=== PATIENT | male | born 1945 | race Caucasian/White ===

== ENCOUNTER → 2017-01-31 | Outpatient (CLI) | payer MEDICARE, OTHER ==
[2017-01-31 09:29] LABS: MEAN CORPUSCULAR HEMOGLOBIN 30.5 pg (27.0-33.0); MEAN CORPUSCULAR HGB CONC 33.7 g/dl (32.0-36.5); MEAN CORPUSCULAR VOLUME 90.6 fl (80.0-96.0); RED CELL DISTRIBUTION WIDTH 12.1 % (11.5-14.5); WHITE BLOOD COUNT 6.6 K/mm3 (4.0-10.0)
[2017-01-31 09:51] LABS: ALBUMIN 3.8 GM/DL (3.2-5.2); ALBUMIN/GLOBULIN RATIO 1.52 (1.00-1.93); ALKALINE PHOSPHATASE 87 U/L (45-117); ALT/SGPT 20 U/L (12-78); ANION GAP 8 MEQ/L (8-16); AST/SGOT 20 U/L (15-37); BILIRUBIN,TOTAL 0.4 MG/DL (0.2-1.0); BLOOD UREA NITROGEN 20 MG/DL (7-18); CALCIUM LEVEL 8.1 MG/DL (8.8-10.2); CARBON DIOXIDE LEVEL 29 MEQ/L (21-32); CHLORIDE LEVEL 104 MEQ/L (98-107); CHOLESTEROL LEVEL 113 MG/DL (<200); CREATININE FOR GFR 0.95 MG/DL (0.70-1.30); GLOMERULAR FILTRATION RATE > 60.0 (>42); GLUCOSE, FASTING 131 MG/DL (83-110); POTASSIUM SERUM 4.1 MEQ/L (3.5-5.1); SODIUM LEVEL 141 MEQ/L (136-145); TOTAL PROTEIN 6.3 GM/DL (6.4-8.2); TRIGLYCERIDES LEVEL 69 MG/DL (<150)
== END ==
LOC: M WUC 08:09
PROVIDERS: ATTEND Family Medicine
DX: I10 Essential (primary) hypertension (principal); E11.9 Type 2 diabetes mellitus without complications; N40.0 Benign prostatic hyperplasia without lower urinary tract symptoms

== ENCOUNTER → 2017-09-19 | Outpatient (CLI) | payer MEDICARE, OTHER ==
[2017-09-19 13:52] LABS: MEAN CORPUSCULAR HGB CONC 32.9 g/dl (32.0-36.5); MEAN CORPUSCULAR VOLUME 90.9 fl (80.0-96.0); PLATELET COUNT, AUTOMATED 225 10^3/uL (150-450); RED CELL DISTRIBUTION WIDTH 12.1 % (11.5-14.5); WHITE BLOOD COUNT 5.5 10^3/uL (4.0-10.0)
[2017-09-19 14:16] LABS: ALBUMIN 3.8 GM/DL (3.2-5.2); ALBUMIN/GLOBULIN RATIO 1.31 (1.00-1.93); ALKALINE PHOSPHATASE 91 U/L (45-117); ALT/SGPT 20 U/L (12-78); ANION GAP 6 MEQ/L (8-16); AST/SGOT 24 U/L (15-37); BILIRUBIN,TOTAL 0.6 MG/DL (0.2-1.0); BLOOD UREA NITROGEN 20 MG/DL (7-18); CALCIUM LEVEL 8.9 MG/DL (8.8-10.2); CARBON DIOXIDE LEVEL 31 MEQ/L (21-32); CHLORIDE LEVEL 103 MEQ/L (98-107); CHOLESTEROL LEVEL 115 MG/DL (<200); CREATININE FOR GFR 0.96 MG/DL (0.70-1.30); GLOMERULAR FILTRATION RATE > 60.0 (>42); GLUCOSE, FASTING 127 MG/DL (83-110); POTASSIUM SERUM 4.2 MEQ/L (3.5-5.1); SODIUM LEVEL 140 MEQ/L (136-145); TOTAL PROTEIN 6.7 GM/DL (6.4-8.2); TRIGLYCERIDES LEVEL 53 MG/DL (<150)
== END ==
LOC: M WUC 09:06
PROVIDERS: ATTEND Family Medicine
DX: R53.83 Other fatigue (principal); I10 Essential (primary) hypertension; E11.9 Type 2 diabetes mellitus without complications

== ENCOUNTER → 2018-06-11 | Outpatient (CLI) | payer MEDICARE, OTHER ==
[2018-06-11 09:37] LABS: HEMATOCRIT 42.8 % (42.0-52.0); HEMOGLOBIN 14.4 g/dl (13.5-17.5); MEAN CORPUSCULAR HEMOGLOBIN 30.3 pg (27.0-33.0); MEAN CORPUSCULAR HGB CONC 33.6 g/dl (32.0-36.5); MEAN CORPUSCULAR VOLUME 90.1 fl (80.0-96.0); PLATELET COUNT, AUTOMATED 205 10^3/uL (150-450); RED BLOOD COUNT 4.75 10^6/uL (4.30-6.10); RED CELL DISTRIBUTION WIDTH 11.9 % (11.5-14.5); WHITE BLOOD COUNT 5.7 10^3/uL (4.0-10.0)
[2018-06-11 09:44] LABS: ESTIMATED AVERAGE GLUCOSE 160 MG/DL (60-110); HEMOGLOBIN A1c 7.2 %
[2018-06-11 09:53] LABS: ALBUMIN 3.8 GM/DL (3.2-5.2); ALBUMIN/GLOBULIN RATIO 1.31 (1.00-1.93); ALKALINE PHOSPHATASE 99 U/L (45-117); ALT/SGPT 24 U/L (12-78); ANION GAP 4 MEQ/L (8-16); AST/SGOT 22 U/L (7-37); BILIRUBIN,TOTAL 0.6 MG/DL (0.2-1.0); BLOOD UREA NITROGEN 20 MG/DL (7-18); CALCIUM LEVEL 8.5 MG/DL (8.8-10.2); CARBON DIOXIDE LEVEL 31 MEQ/L (21-32); CHLORIDE LEVEL 107 MEQ/L (98-107); CHOLESTEROL LEVEL 105 MG/DL (<200); CHOLESTEROL RISK RATIO 2.837 (<5); CREATININE FOR GFR 0.86 MG/DL (0.70-1.30); GLOMERULAR FILTRATION RATE > 60.0 (>42); GLUCOSE, FASTING 136 MG/DL (70-100); HDL CHOLESTEROL 37 MG/DL (>40); NON-HDL-C 68 MG/DL; PROSTATIC SPECIFIC AG MONITOR 2.52 NG/ML (< 4.0); SODIUM LEVEL 142 MEQ/L (136-145); TOTAL PROTEIN 6.7 GM/DL (6.4-8.2); TRIGLYCERIDES LEVEL 80 MG/DL (<150)
== END ==
LOC: M LAB 08:32
DX: R53.83 Other fatigue (principal); I10 Essential (primary) hypertension; E11.9 Type 2 diabetes mellitus without complications; R94.31 Abnormal electrocardiogram [ECG] [EKG]
CPT/HCPCS: 71046

== ENCOUNTER → 2019-04-10 | Outpatient (REF) | payer MEDICARE, OTHER | LOC: M LAB REF 16:19 | PROVIDERS: ATTEND Physician Assistant | DX: N39.0 Urinary tract infection, site not specified (principal) ==

== ENCOUNTER → 2019-04-28 | Outpatient (CLI) | payer MEDICARE, OTHER | LOC: M WUC 13:08 | PROVIDERS: ATTEND Family Medicine | DX: N40.0 Benign prostatic hyperplasia without lower urinary tract symptoms (principal) ==

== ENCOUNTER → 2019-07-17 | Outpatient (CLI) | payer MEDICARE, OTHER ==
[2019-07-17 12:29] LABS: APPEARANCE, URINE CLEAR (CLEAR); BACTERIA, URINE AUTO NEGATIVE (NEGATIVE); BILIRUBIN, URINE AUTO NEGATIVE (NEGATIVE); BLOOD, URINE BLOOD NEGATIVE (NEGATIVE); COLOR, URINE YELLOW (YELLOW); GLUCOSE, URINE (UA) AUTO NEGATIVE (NEGATIVE); KETONE, URINE AUTO NEGATIVE (NEGATIVE); LEUKOCYTE ESTERASE, URINE AUTO NEGATIVE (NEGATIVE); NITRITE, URINE AUTO NEGATIVE (NEGATIVE); PROTEIN, URINE AUTO NEGATIVE (NEGATIVE); RBC, URINE AUTO 2 /HPF (0-3); SPECIFIC GRAVITY URINE AUTO 1.011 (1.002-1.035); SQUAMOUS EPITHELIAL CELL UR AU 0 /HPF (0-6); UROBILINOGEN, URINE AUTO 0.2 mg/dL (0.0-2.0); WBC, URINE AUTO 1 /HPF (0-3)
[2019-07-17 12:49] LABS: PROSTATIC SPECIFIC AG MONITOR 3.83 NG/ML (< 4.00)
== END ==
LOC: M LAB 10:24
PROVIDERS: ATTEND Family Medicine
DX: R53.83 Other fatigue (principal); Z79.899 Other long term (current) drug therapy

== ENCOUNTER → 2019-09-10 | Outpatient (REF) | payer MEDICARE, OTHER | LOC: M LAB REF 11:52 | PROVIDERS: ATTEND Physician Assistant | DX: R30.0 Dysuria (principal) ==

== ENCOUNTER → 2019-09-27 | Outpatient (CLI) | payer MEDICARE, OTHER ==
[2019-09-27 10:24] LABS: APPEARANCE, URINE CLEAR (CLEAR); BACTERIA, URINE AUTO NEGATIVE (NEGATIVE); BILIRUBIN, URINE AUTO NEGATIVE (NEGATIVE); BLOOD, URINE BLOOD NEGATIVE (NEGATIVE); COLOR, URINE YELLOW (YELLOW); GLUCOSE, URINE (UA) AUTO NEGATIVE (NEGATIVE); KETONE, URINE AUTO NEGATIVE (NEGATIVE); LEUKOCYTE ESTERASE, URINE AUTO NEGATIVE (NEGATIVE); MUCUS, URINE SMALL (NEGATIVE); NITRITE, URINE AUTO NEGATIVE (NEGATIVE); PROTEIN, URINE AUTO NEGATIVE (NEGATIVE); RBC, URINE AUTO 2 /HPF (0-3); SPECIFIC GRAVITY URINE AUTO 1.013 (1.002-1.035); SQUAMOUS EPITHELIAL CELL UR AU 0 /HPF (0-6); UROBILINOGEN, URINE AUTO 0.2 mg/dL (0.0-2.0); WBC, URINE AUTO 1 /HPF (0-3)
[2019-09-27 10:32] LABS: HEMATOCRIT 35.8 % (42.0-52.0); HEMOGLOBIN 11.5 g/dl (13.5-17.5); MEAN CORPUSCULAR HEMOGLOBIN 30.3 pg (27.0-33.0); MEAN CORPUSCULAR HGB CONC 32.1 g/dl (32.0-36.5); MEAN CORPUSCULAR VOLUME 94.2 fl (80.0-96.0); PLATELET COUNT, AUTOMATED 224 10^3/uL (150-450); WHITE BLOOD COUNT 4.9 10^3/uL (4.0-10.0)
[2019-09-27 11:03] LABS: ALBUMIN 3.4 GM/DL (3.2-5.2); ALT/SGPT 15 U/L (12-78); BILIRUBIN,TOTAL 0.5 MG/DL (0.2-1.0); BLOOD UREA NITROGEN 24 MG/DL (7-18); CALCIUM LEVEL 8.3 MG/DL (8.8-10.2); CARBON DIOXIDE LEVEL 28 MEQ/L (21-32); CHLORIDE LEVEL 108 MEQ/L (98-107); CREATININE FOR GFR 1.17 MG/DL (0.70-1.30); GLOMERULAR FILTRATION RATE > 60.0 (>42); GLUCOSE, FASTING 186 MG/DL (70-100); POTASSIUM SERUM 3.9 MEQ/L (3.5-5.1); PROSTATIC SPECIFIC AG MONITOR 2.98 NG/ML (< 4.00); SODIUM LEVEL 142 MEQ/L (136-145); TOTAL PROTEIN 6.2 GM/DL (6.4-8.2)
[2019-09-27 11:38] LABS: HEMOGLOBIN A1c 6.8 %
== END ==
LOC: M LAB 09:30
PROVIDERS: ATTEND Family Medicine
DX: E11.9 Type 2 diabetes mellitus without complications (principal); N39.0 Urinary tract infection, site not specified; E03.9 Hypothyroidism, unspecified

== ENCOUNTER → 2020-05-18 | Outpatient (CLI) | payer MEDICARE, OTHER ==
[2020-05-18 10:29] LABS: HEMATOCRIT 37.2 % (42.0-52.0); HEMOGLOBIN 12.1 g/dl (13.5-17.5); MEAN CORPUSCULAR HEMOGLOBIN 29.7 pg (27.0-33.0); MEAN CORPUSCULAR HGB CONC 32.5 g/dl (32.0-36.5); MEAN CORPUSCULAR VOLUME 91.2 fl (80.0-96.0); PLATELET COUNT, AUTOMATED 199 10^3/uL (150-450); RED BLOOD COUNT 4.08 10^6/uL (4.30-6.10); WHITE BLOOD COUNT 5.4 10^3/uL (4.0-10.0)
[2020-05-18 11:07] LABS: ALBUMIN 3.7 GM/DL (3.2-5.2); ALT/SGPT 19 U/L (12-78); BILIRUBIN,TOTAL 0.6 MG/DL (0.2-1.0); BLOOD UREA NITROGEN 22 MG/DL (7-18); CALCIUM LEVEL 8.9 MG/DL (8.8-10.2); CARBON DIOXIDE LEVEL 30 MEQ/L (21-32); CHLORIDE LEVEL 106 MEQ/L (98-107); CHOLESTEROL LEVEL 109 MG/DL (<200); CHOLESTEROL RISK RATIO 2.477 (<5); CREATININE FOR GFR 1.13 MG/DL (0.70-1.30); GLOMERULAR FILTRATION RATE > 60.0 (>42); GLUCOSE, FASTING 102 MG/DL (70-100); HDL CHOLESTEROL 44 MG/DL (>40); LDL CHOLESTEROL 54 MG/DL (<100); NON-HDL-C 65 MG/DL; POTASSIUM SERUM 3.8 MEQ/L (3.5-5.1); SODIUM LEVEL 143 MEQ/L (136-145); TESTOSTERONE 521 NG/DL (241-827); TOTAL PROTEIN 6.3 GM/DL (6.4-8.2); TRIGLYCERIDES LEVEL 54 MG/DL (<150)
[2020-05-18 11:41] LABS: HEMOGLOBIN A1c 6.8 %
== END ==
LOC: M WUC 08:13
PROVIDERS: ATTEND Family Medicine
DX: I10 Essential (primary) hypertension (principal); R53.83 Other fatigue; E11.9 Type 2 diabetes mellitus without complications

== ENCOUNTER 2020-09-23 20:56 | Inpatient (IN) | payer MEDICARE, OTHER ==
[~2020-09-23] VITALS: Ht 180.3 cm; Wt 95.4 kg
--- NOTE | 2020-09-23 21:27 | REPVR ---
PROCEDURE INFORMATION: Exam: CT Head Without Contrast Exam date and time: 09/23/2020 9:22 PM Age: 74 years old Clinical indication: Weakness, extremity and weakness, facial; Right; Additional info: Weakness/right side TECHNIQUE: Imaging protocol: Computed tomography of the head without contrast. Radiation optimization: All CT scans at this facility use at least one of these dose optimization techniques: automated exposure control; mA and/or kV adjustment per patient size (includes targeted exams where dose is matched to clinical indication); or iterative reconstruction. Other technique: STROKE PROTOCOL was implemented. COMPARISON: No relevant prior studies available. FINDINGS: Brain: Prominent scattered bilateral nonspecific hypodensities of the periventricular and deep subcortical white matter. No intracranial hemorrhage or extra-axial fluid collection. No evidence of mass effect or midline shift. James-white matter differentiation is normal. Cerebral ventricles: No ventriculomegaly. Bones/joints: No acute osseus lesion or fracture. Paranasal sinuses: Visualized sinuses are unremarkable. No fluid levels. Mastoid air cells: Unremarkable. Soft tissues: Unremarkable. IMPRESSION: 1. No acute intracranial pathology. ASPECTS score 10. 2. Prominent scattered bilateral nonspecific hypodensities of the periventricular and deep subcortical white matter. Findings may reflect chronic sequela of small-vessel ischemic change or possibly demyelinating disease. Recommend neurology consultation and further evaluation with MRI brain with and without contrast. Electronically signed by: Tung Moreno On 09/23/2020 21:27:10 PM
[2020-09-23 21:43] LABS: BASO % 0.7 % (0.0-1.0); EOS # 0.1 10^3/uL (0.0-0.5); EOS % 1.6 % (0.0-3.0); HEMATOCRIT 39.6 % (42.0-52.0); HEMOGLOBIN 12.8 g/dl (13.5-17.5); LYMPH # 1.4 10^3/uL (1.5-5.0); LYMPH % 25.2 % (24.0-44.0); MEAN CORPUSCULAR HEMOGLOBIN 29.7 pg (27.0-33.0); MEAN CORPUSCULAR HGB CONC 32.3 g/dl (32.0-36.5); MEAN CORPUSCULAR VOLUME 91.9 fl (80.0-96.0); MONO # 0.6 10^3/uL (0.0-0.8); NEUTROPHILS # 3.5 10^3/uL (1.5-8.5); PLATELET COUNT, AUTOMATED 200 10^3/uL (150-450); RED BLOOD COUNT 4.31 10^6/uL (4.30-6.10); WHITE BLOOD COUNT 5.6 10^3/uL (4.0-10.0)
[2020-09-23 21:53] LABS: INR 0.97; PROTHROMBIN TIME 13.1 SECONDS (12.5-14.3)
[2020-09-23 21:54] LABS: PARTIAL THROMBOPLASTIN TIME 28.7 SECONDS (24.2-38.5)
[2020-09-23 22:10] LABS: ALBUMIN 3.8 GM/DL (3.2-5.2); ALT/SGPT 19 U/L (12-78); BILIRUBIN,TOTAL 0.4 MG/DL (0.2-1.0); BLOOD UREA NITROGEN 25 MG/DL (7-18); CALCIUM LEVEL 8.9 MG/DL (8.8-10.2); CARBON DIOXIDE LEVEL 28 MEQ/L (21-32); CHLORIDE LEVEL 106 MEQ/L (98-107); CK-MB VALUE MASS 8.9 NG/ML (<3.6); CPK CREATINE PHOSPHOKINASE 381 U/L (39-308); CREATININE FOR GFR 1.15 MG/DL (0.70-1.30); GLOMERULAR FILTRATION RATE > 60.0 (>42); GLUCOSE, FASTING 119 MG/DL (70-100); MB/CK RELATIVE INDEX 2.34 (< OR =4); POTASSIUM SERUM 4.1 MEQ/L (3.5-5.1); SODIUM LEVEL 140 MEQ/L (136-145); TOTAL PROTEIN 6.8 GM/DL (6.4-8.2); TROPONIN I < 0.02 NG/ML (< 0.10)
--- NOTE | 2020-09-23 22:13 | REPVR ---
PROCEDURE INFORMATION: Exam: XR Chest, 1 View Exam date and time: 09/23/2020 10:05 PM Age: 74 years old Clinical indication: Other: CVA TECHNIQUE: Imaging protocol: XR of the chest Views: 1 view. COMPARISON: CR Chest, 2 view PA, Lat 06/11/2018 8:56 AM FINDINGS: Lungs: No focal areas of consolidation. Pleural space: No pleural effusion or pneumothorax. Heart/Mediastinum: Cardiac and mediastinal silhouettes are unremarkable. Bones/joints: No acute osseus lesion or fracture. IMPRESSION: No acute cardiopulmonary findings. Electronically signed by: Tung Moreno On 09/23/2020 22:13:03 PM
[2020-09-23] MEDS ORDERED: ASPIRIN 325 MG TAB PO ONE (22:15)
[2020-09-23] MEDS ORDERED: CIAL5TAB PO ×2 (22:22→23:27)
[2020-09-23] MEDS ORDERED: METF10004 PO (22:22)
[2020-09-23] MEDS ORDERED: DOXA1TAB41 PO ×2 (22:22→23:27)
[2020-09-23] MEDS ORDERED: OXYB5TAB10 PO ×2 (22:22→23:27)
[2020-09-23] MEDS ORDERED: DOXY100C PO ×2 (22:22→23:27)
[2020-09-23] MEDS ORDERED: ZYLO300T6 PO ×2 (22:22→23:27)
[2020-09-23] MEDS ORDERED: LEVO112T2 PO (22:22)
[2020-09-23] MEDS ORDERED: LANS30CA PO ×2 (22:22→23:27)
[2020-09-23] MEDS ORDERED: ACETAMINOPHEN TAB 650MG DOSE (2X325MG) PO PRN (23:15)
[2020-09-23] MEDS ORDERED: METF500T13 PO (23:27)
[2020-09-23] MEDS ORDERED: SYNT112T2 PO (23:27)
[2020-09-23] MEDS ORDERED: PRAV40TA2 PO (23:27)
[2020-09-23] MEDS ORDERED: GLUCOSE 4GM CHEW TABLET PO PRN (23:30)
[2020-09-23] MEDS ORDERED: DEXTROSE 50% 50 ML SYRINGE IV PRN (23:30)
[2020-09-23] MEDS ORDERED: GLUCAGON INJ 1MG VIAL SC PRN (23:30)
[2020-09-23 23:46] LABS: CHOLESTEROL LEVEL 96 MG/DL (<200); CHOLESTEROL RISK RATIO 2.181 (<5); HDL CHOLESTEROL 44 MG/DL (>40); LDL CHOLESTEROL 37 MG/DL (<100); NON-HDL-C 52 MG/DL; TRIGLYCERIDES LEVEL 77 MG/DL (<150)
[2020-09-24 00:36] VITALS: BP 148/92
--- NOTE | 2020-09-24 01:14 | HPEPDOC ---
[facility] Medical History & Physical Date of Admission Sep 23, 2020 Date of Service: Sep 23, 2020 Primary Care Physician: Shaheed Lopez Attending Physician: KAYCEE VARELA MD History and Physical CHIEF COMPLAINT: Right arm weakness HISTORY OF PRESENT ILLNESS: Patient is a 74 year old male who presented to the [facility] ER with complaint of right arm weakness. Patient stated that he had woken up to go to the bathroom around 0500 on 09/23. When he finishe d using the bathroom he went to flush the toilet however his right arm felt weak. He was unable to press down on the flusher. After this he walked to the kitchen to get something to eat. He states that he chronically has right foot drop and is unable to say whether he felt weaker or not. When he went to eat a bowel of cereal he felt it difficult to terminal gauger his spoon. He then took and tylenol and fell asleep on his recliner where he awakened at 1100. He went to go make a sandwich and once again noticed that he was having difficulty using his right hand. Around 1430 he took another nap and awoke at 1600 at which point he noticed that he was still weak in his right arm/hand. He had called his who is currently out of town and recommended that he go to urgent care. The patient then drove to urgent care. He denied any difficulty driving. He denied any difficulty using the gas pedal or driving his car. When he got to the urgent care he felt the line was too long and went home with plans to go back later in the night. Around 1900 he went back to urgent care where they sent him to the ER In the ER the patient was vitally stable. He received a CT scan of the head which demonstrated no acute intracranial pathology however prominent scattered bilateral hypodensities of the periventricular and deep subcortical white matter were noted. In the ER the patient stated that he continues to have weakness of his right arm and hand. He states that his right foot is about the same as it's been since 1984. He denies any changes in his vision. He denies difficulty swallowing. Hospitalist service was consulted and the patient was admitted for further evaluation and management PAST MEDICAL HISTORY: 1. Hypertension 2. BPH 3. Diabetes Mellitus Type 2 4. Chronic Lower Back Pain 5. Right Foot Drop PAST SURGICAL HISTORY: 1. Cholecystectomy 2. Bilateral inguinal hernia repair SOCIAL HISTORY: Patient lives at home with his . He is independent of his ADLs. He ambulates without a cane or walker. He denies any smoking history. He denies any alcohol use. He denies any IV or illicit drug use. Patients PCP is Dr. Lopez. FAMILY HISTORY: Patient Mother of a massive CA. His father suffered a stroke ALLERGIES: Please see below. REVIEW OF SYSTEMS: CONSTITUTIONAL: Denies fevers, chills, unintentional weightloss or nightsweats HEENT: Denies difficulty swallowing or pain on swallowing. Denies changes in vision CARDIOVASCULAR: Denies chest pain, palpitations, or feelings of the heart racing RESPIRATORY: Denies shortness of breath. Denies cough. Denies wheezing GASTROINTESTINAL: Denies abdominal pain. Denies nausea, vomiting, diarrhea, or constipation GENITOURINARY: Admits to chronic urinary retention issues 2/2 BPH. Denies dysuria SKIN: Denies any rashes or lesions MUSCULOSKELETAL: Admits to chronic right foot drop. Admits to new right arm/hand weakness. Admits to chronic lower back pain NEUROLOGICAL: Admits to chronic foot drop with some gait disturbance. Denies slurring of speech. Denies difficulty speaking PSYCHIATRIC: Denies depression or anxiety ENDOCRINE: Denies heat intolerance or cold intolerance HEMATOLOGIC/LYMPHATIC: Denies easy bruising or bleeding. Denies history of DVT or PE HOME MEDICATIONS: Please see below. PHYSICAL EXAMINATION: VITAL SIGNS: Temperature 98.1, pulse 82, respiratory rate 18, blood pressure 159/80, pulse oximetry 97% on room air. GENERAL APPEARANCE: Patient is awake, alert, and oriented. He does not appear in any acute distress. Lying comfortably in bed HEENT: Atraumatic, normocephalic. eyes are nonicteric. Trachea is midline. mucous membranes are pink and moist CARDIOVASCULAR: normal S1, S2. Regular rate and rhythm. No clicks, rubs, or murmurs LUNGS: Clear breath sounds bilaterally. No wheezes, rhonchi or rales. ABDOMEN: soft, nondistended. Nontender. normoactive bowel sounds throughout. MUSCULOSKELETAL: 4/5 terminal gauger strength in right hand. 5/5 on left. 5/5 muscle strength testing in bilateral upper and lower extremities. Right foot drop EXTREMITIES: No edema. Full and equal pulses bilaterally NEUROLOGICAL: No focal neurological deficits. CN II-XII grossly intact. mild decreased terminal gauger strength in the right hand. Sensation intact. No pronator drift. Cerebellar testing normal PSYCHIATRIC: Mood and affect appear appropriate LABORATORY DATA: See below. IMAGING: Findings were discussed with WENDY SUBRAMANIAN at 09/23/2020 9:37 PM EDT. Electronically signed by: Tung Dean On 09/23/2020 21:37:14 PM DD: TUNG DEAN MD 09/23/[id number] DT: JULIETH 09/23/[id number] DS: DANICA 09/23/[id number] PROCEDURE INFORMATION: Exam: CT Head Without Contrast Exam date and time: 09/23/2020 9:22 PM Age: 74 years old Clinical indication: Weakness, extremity and weakness, facial; Right; Additional info: Weakness/right side TECHNIQUE: Imaging protocol: Computed tomography of the head without contrast. Radiation optimization: All CT scans at this facility use at least one of these dose optimization techniques: automated exposure control; mA and/or kV adjustment per patient size (includes targeted exams where dose is matched to clinical indication); or iterative reconstruction. Other technique: STROKE PROTOCOL was implemented. COMPARISON: No relevant prior studies available. FINDINGS: Brain: Prominent scattered bilateral nonspecific hypodensities of the periventricular and deep subcortical white matter. No intracranial hemorrhage or extra-axial fluid collection. No evidence of mass effect or midline shift. James-white matter differentiation is normal. Cerebral ventricles: No ventriculomegaly. Bones/joints: No acute osseus lesion or fracture. Paranasal sinuses: Visualized sinuses are unremarkable. No fluid levels. Mastoid air cells: Unremarkable. Soft tissues: Unremarkable. IMPRESSION: 1. No acute intracranial pathology. ASPECTS score 10. 2. Prominent scattered bilateral nonspecific hypodensities of the periventricular and deep subcortical white matter. Findings may reflect chronic sequela of small-vessel ischemic change or possibly demyelinating disease. Recommend neurology consultation and further evaluation with MRI brain with and without contrast. Electronically signed by: Tung Dean On 09/23/2020 21:27:10 PM PROCEDURE INFORMATION: Exam: XR Chest, 1 View Exam date and time: 09/23/2020 10:05 PM Age: 74 years old Clinical indication: Other: CVA TECHNIQUE: Imaging protocol: XR of the chest Views: 1 view. COMPARISON: CR Chest, 2 view PA, Lat 06/11/2018 8:56 AM FINDINGS: Lungs: No focal areas of consolidation. Pleural space: No pleural effusion or pneumothorax. Heart/Mediastinum: Cardiac and mediastinal silhouettes are unremarkable. Bones/joints: No acute osseus lesion or fracture. IMPRESSION: No acute cardiopulmonary findings. Electronically signed by: Tung Dean On 09/23/2020 22:13:03 PM MICROBIOLOGY: Please see below. ASSESSMENT: Patient is a 74 year old male who presented to the [facility] ER with complaint of right arm/hand weakness. In ER head CT was negative for any acute pathology however demonstrated hypodensities in the periventricular white matter . PLAN: 1. Right arm/hand weakness 2/2 upper vs lower motor neuron disease -Patient presented with isolated right arm weakness. On exam he has some mild weakness in right hand terminal gauger although normal arm strength. No cortical signs. No hyperreflexia or hyporeflexia. Possibly secondary to lower motor neuron disease such as motor nerve root compression. Patient also has right foot drop which is chronic in nature -CT imaging demonstrating hypodensities in the periventricular white matter. Concerning for demyelinating disease although could be secondary to small vessel disease. -MRI of brain with and without contrast. -Consider neurology consult in AM -Lipid panel, HgbA1c ordered -Neuro checks q4h -Telemetry -Echocardiogram ordered -Currently on Pravastatin 2. Diabetes Mellitus Type 2 -HgbA1c 6.0 -Consistent carb diet with sliding scale coverage ACHS 3. BPH -Continue patients doxazosin, oxybutynin -Patient on Doxy for chronic UTI suppressive therapy. Will continue 4. GERD -Protonix 5. Hypothyroidism -Continue home Synthroid 6. Gout -Continue allopurinol 7.DVT Prophylaxis -Heparin SQ Vital Signs Vital Signs Date Time Temp Pulse Resp B/P (MAP) Pulse Ox O2 Delivery O2 Flow Rate FiO2 09/23/20 23:45 73 195/104 (134) 98 09/23/20 20:56 98.1 18 Room Air Laboratory Data Labs 24H Laboratory Tests 2 09/23/20 21:32: Immature Granulocyte % (Auto) 0.5, Neutrophils (%) (Auto) 62.0, Lymphocytes (%) (Auto) 25.2, Monocytes (%) (Auto) 10.0H, Eosinophils (%) (Auto) 1.6, Basophils (%) (Auto) 0.7, Neutrophils # (Auto) 3.5, Lymphocytes # (Auto) 1.4L, Monocytes # (Auto) 0.6, Eosinophils # (Auto) 0.1, Basophils # (Auto) 0.0, Nucleated Red Blood Cells % (auto) 0.0, Prothrombin Time 13.1, Prothromb Time International Ratio 0.97, Activated Partial Thromboplast Time 28.7, Anion Gap 6L, Glomerular Filtration Rate > 60.0, Estimated Mean Plasma Glucose 126H, Hemoglobin A1c 6.0, Calcium Level 8.9, Total Bilirubin 0.4, Aspartate Amino Transf (AST/SGOT) 27, Alanine Aminotransferase (ALT/SGPT) 19, Alkaline Phosphatase 80, Total Creatine Kinase 381H, Creatine Kinase MB 8.9H, Creatine Kinase MB Relative Index 2.34, Troponin I < 0.02, Total Protein 6.8, Albumin 3.8, Albumin/Globulin Ratio 1.3, Triglycerides Level 77, Total Cholesterol 96, LDL Cholesterol 37, Non-HDL Cholesterol (LDL + VLDL) 52, Total HDL Cholesterol 44, Cholesterol/HDL Ratio 2.181, Thyroid Stimulating Hormone (TSH) 2.240 CBC/BMP Laboratory Tests 09/23/20 21:32 Home Medications Scheduled Allopurinol (Zyloprim) 300 Mg Tablet, 300 MG PO QPM TAKES AT DINNER Doxazosin Mesylate (Doxazosin Mesylate) 2 Mg Tablet, 2 MG PO BID Doxycycline Hyclate (Doxycycline Hyclate) 100 Mg Capsule, 100 MG PO DAILY Lansoprazole (Lansoprazole) 30 Mg Capsule.dr, 30 MG PO DAILY Levothyroxine Sodium (Synthroid) 112 Mcg Tablet, 112 MCG PO DAILY Metformin HCl (Metformin HCl) 500 Mg Tablet, 500 MG PO BID Oxybutynin Chloride (Oxybutynin Chloride) 5 Mg Tablet, 5 MG PO BID Pravastatin Sodium (Pravastatin Sodium) 40 Mg Tablet, 40 MG PO QPM TAKES AT DINNER Tadalafil (Cialis) 5 Mg Tablet, 5 MG PO QPM TAKES AT DINNER Allergies Coded Allergies: NSAIDS (Non-Steroidal Anti-Inflamma (Verified Allergy, Unknown, unknwn-10 years ago per pt, 09/23/20) A-FIB/CHADSVASC A-FIB History Current/History of A-Fib/PAF?: No GME ATTESTATION GME ATTESTATION My faculty preceptor for this patient encounter was physically present during th e encounter and was fully available. All aspects of the patient interview, examination, medical decision making process, and medical care plan development were reviewed and approved by the faculty preceptor. The faculty preceptor is aware and concurs with the plan as stated in the body of this note and will attest to such by his/her cosignature. ATTENDING NOTE TIME OF SERVICE 1150PM DATE OF ADMISSION & DATE OF SEP 23 2020 I personal examined the patient, reviewed the note and agree with the findings as documented. LALI MAURER DO Sep 24, 2020 01:14 KAYCEE VARELA MD Sep 24, 2020 02:15
[2020-09-24] MEDS: LEVOTHYROXINE 112MCG TABLET (0.112MG) PO SCH (05:37)
[2020-09-24] MEDS: HEPARIN SOD (PORCINE) 5000UNITS/ML 1ML VIAL/SYRINGE SQ SCH ×3 (05:38→20:35)
[2020-09-24 06:00] VITALS: BP 126/70
[2020-09-24 06:31] LABS: HEMATOCRIT 36.5 % (42.0-52.0); HEMOGLOBIN 12.2 g/dl (13.5-17.5); MEAN CORPUSCULAR HEMOGLOBIN 30.3 pg (27.0-33.0); MEAN CORPUSCULAR HGB CONC 33.4 g/dl (32.0-36.5); MEAN CORPUSCULAR VOLUME 90.8 fl (80.0-96.0); PLATELET COUNT, AUTOMATED 182 10^3/uL (150-450); RED BLOOD COUNT 4.02 10^6/uL (4.30-6.10); WHITE BLOOD COUNT 5.4 10^3/uL (4.0-10.0)
[2020-09-24 06:49] LABS: BLOOD UREA NITROGEN 21 MG/DL (7-18); CALCIUM LEVEL 8.4 MG/DL (8.8-10.2); CARBON DIOXIDE LEVEL 27 MEQ/L (21-32); CHLORIDE LEVEL 110 MEQ/L (98-107); CREATININE FOR GFR 0.93 MG/DL (0.70-1.30); GLOMERULAR FILTRATION RATE > 60.0 (>42); GLUCOSE, FASTING 104 MG/DL (70-100); POTASSIUM SERUM 3.6 MEQ/L (3.5-5.1); SODIUM LEVEL 141 MEQ/L (136-145)
--- NOTE | 2020-09-24 07:19 | IPNPDOC ---
Date Seen The patient was seen on 09/24/20. Progress Note SUBJECTIVE: Patient was seen and examined at bedside. Sitting upright in chair, finished working with physical therapy. Patient reports persistent weakness in the right hand, and in fact I notice a right-sided facial droop affecting the right lower part of the face sparing the forehead. Patient does not recall seeing this earlier. He denies headaches, chest pain, shortness of breath, nausea, vomiting, diarrhea or blurred vision. OBJECTIVE PHYSICAL EXAMINATION: VITAL SIGNS: please see below General: NAD, comfortable HEENT: PERRLA, EOMI, sclerae clear Neck: supple, normal ROM, no JVD Respiratory: lungs CTAB, no wheeze, no rales, no crackles CVS: RRR, normal S1, S2, no murmurs Abdo: soft, no masses, no hepatosplenomegaly, BS+, no rebound tenderness Extremities: no edema, pulses 2+ MSK: no joint deformities, normal ROM Neuro: Right-sided facial droop affecting the right lower part of the face. Right hand hair baler weakness. Sensation intact. No dysdiadochokinesia. No nystagmus. No past pointing. Strength in the proximal arms. 5 out of 5. 5 strength in the left lower extremity. Right foot drop noted. 5 out of 5 strength in the right hip. Psych: calm, cooperative, AAO x 3 LABORATORY DATA, IMAGING STUDIES, MICROBIOLOGY: Please see below. Echocardiogram: ordered, pending DVT prophylaxis ordered?: Y, heparin q8h ASSESSMENT AND PLAN: 74 yo M with a hx of DM2, HTN, BPH, R foot drop, presented to ER c/o R hand weakness since 5 am on 09/23. CT head showing no acute hemorrhage or ischemia, questionable hypodensities in periventricular white matter. Neurology consulted, patient started on DAPT. CTA head and neck as well as MRI head w/wo pending. PROBLEMS: #R hand weakness: likely CVA. Neurology Dr. Carmona consulted. reviewed CT head, showing extensive small vessel ischemic disease, likely multiple prior L sided acute/subacute strokes with old R sided CVA. Ct per rad read indicated questionably hypodensities in periventricular white matter. CTA head and neck STAT. MRI w/wo pending. 2D echo ordered. Tele. Check lipids LDL 37. HDL 44. A1c 6.0. ASA/plavix, statin. Speech eval. PT/OT. #DM2: ISS, CC diet. A1c. 6.0. hypoglycemia precautions. #BPH: doxazosin, oxybutinin. Doxy for chornic UTI. #GERD: ppi #Hypothyroidism: synthroid #Gout: allopurinol DVT ppx: heparin SQ q8h. VS, I&O, 24H, Fishbone Vital Signs/I&O Vital Signs Date Time Temp Pulse Resp B/P (MAP) Pulse Ox O2 Delivery O2 Flow Rate FiO2 09/24/20 06:00 97.0 61 20 126/70 (88) 96 09/24/20 00:36 Room Air I&O- Last 24 Hours up to 6 AM 09/24/20 06:00 Intake Total 60 ml Output Total 0 ml Balance 60 ml Laboratory Data 24H LABS Laboratory Tests 2 09/23/20 21:32: Immature Granulocyte % (Auto) 0.5, Neutrophils (%) (Auto) 62.0, Lymphocytes (%) (Auto) 25.2, Monocytes (%) (Auto) 10.0H, Eosinophils (%) (Auto) 1.6, Basophils (%) (Auto) 0.7, Neutrophils # (Auto) 3.5, Lymphocytes # (Auto) 1.4L, Monocytes # (Auto) 0.6, Eosinophils # (Auto) 0.1, Basophils # (Auto) 0.0, Nucleated Red Blood Cells % (auto) 0.0, Prothrombin Time 13.1, Prothromb Time International Ratio 0.97, Activated Partial Thromboplast Time 28.7, Anion Gap 6L, Glomerular Filtration Rate > 60.0, Estimated Mean Plasma Glucose 126H, Hemoglobin A1c 6.0, Calcium Level 8.9, Total Bilirubin 0.4, Aspartate Amino Transf (AST/SGOT) 27, Alanine Aminotransferase (ALT/SGPT) 19, Alkaline Phosphatase 80, Total Creatine Kinase 381H, Creatine Kinase MB 8.9H, Creatine Kinase MB Relative Index 2.34, Troponin I < 0.02, Total Protein 6.8, Albumin 3.8, Albumin/Globulin Ratio 1.3, Triglycerides Level 77, Total Cholesterol 96, LDL Cholesterol 37, Non-HDL Cholesterol (LDL + VLDL) 52, Total HDL Cholesterol 44, Cholesterol/HDL Ratio 2.181, Thyroid Stimulating Hormone (TSH) 2.240 09/24/20 06:13: Nucleated Red Blood Cells % (auto) 0.0, Anion Gap 4L, Glomerular Filtration Rate > 60.0, Calcium Level 8.4L CBC/BMP Laboratory Tests 09/23/20 21:32 09/24/20 06:13 PORTER ELIZONDO MD Sep 24, 2020 07:19
[2020-09-24] MEDS: HumaLOG INSULIN (NovoLOG) PER UNIT SC SCH ×4 (07:30→17:02)
--- NOTE | 2020-09-24 08:08 | ECGEPIP ---
[facility] - ED Test Date: 2020-09-23 Pat Name: CIARAN ROTH Department: Room: [place] [address] Gender: Male [employer]: mane : 1945 Requested By: WENDY Calhoun Order Number: [id number] Reading MD: Nora Ramos Measurements Intervals [place] Rate: 71 P: 29 SD: 175 QRS: -40 QRSD: 157 T: 19 QT: 415 QTc: 451 Interpretive Statements SINUS RHYTHM WITH OCCASIONAL VENTRICULAR PREMATURE COMPLEXES MARKED LEFT AXIS DEVIATION RIGHT BUNDLE BRANCH BLOCK NSTTW abnormalities Electronically Signed on 09-24-2020 8:08:17 EDT by Nora Ramos
[2020-09-24] MEDS: PANTOPRAZOLE 40MG TAB (PROTONIX) PO SCH (08:17)
[2020-09-24] MEDS: oxyBUTYnin 5 MG TAB PO SCH ×2 (08:17→20:33)
[2020-09-24] MEDS: DOXAZOSIN MESYLATE 1 MG TAB PO SCH ×2 (08:17→20:34)
[2020-09-24] MEDS: DOXYCYCLINE HYCLATE 100MG TABLET PO SCH (08:17)
[2020-09-24] MEDS ORDERED: ASPIRIN 81 MG ENTERIC TAB PO SCH (09:00)
[2020-09-24] MEDS ORDERED: ISOVUE-370 76% 100ML VIAL As Ordered ONE (09:53)
--- NOTE | 2020-09-24 10:29 | REP ---
INDICATION: cva/tia. COMPARISON: No comparison.. TECHNIQUE: Bilateral duplex carotid sonography. FINDINGS: Antegrade flow is observed in both vertebral arteries. Right carotid: Right common carotid artery shows mild diffuse intimal thickening. There is mild soft and calcific plaquing in the bulb, proximal ICA, and proximal ECA on the right side. No significant stenosis is seen. Color flow and spectral Doppler interrogation are unremarkable. Velocity chart right carotid: Right CCA PSV 94 cm/S Right ICA PSV 56 cm/S Right ICA EDV 14 cm/S Right ECA PSV 78 cm/S Right ICA/CCA ratio normal 0.60 Left carotid: There is mild diffuse intimal thickening in the left common carotid artery on two-dimensional scanning. Mild mixed plaquing is seen in the left carotid bulb and proximal ICA on two-dimensional scanning. No significant stenosis is seen. Color flow and spectral Doppler interrogation unremarkable on the left. Velocity chart left carotid: Left CCA PSV 97 cm/S Left ICA PSV 44 cm/S Left ICA EDV 15.7 cm/S Left ICA/CCA ratio normal 0.46 IMPRESSION: Less than 50% category narrowing in the internal carotid arteries bilaterally by Doppler velocity criteria. Mild mixed plaquing. <Electronically signed by Rob Pinto > 09/24/20 [id number]
[2020-09-24] MEDS ORDERED: PROHANCE 279.3MG/ML 5ML VIAL As Ordered ONE (10:50)
[2020-09-24] MEDS ORDERED: PROHANCE 279.3MG/ML 15ML VIAL As Ordered ONE (10:51)
--- NOTE | 2020-09-24 10:57 | REP ---
INDICATION: suspected cva. COMPARISON: Comparison CT study of the brain September 23, 2020.. TECHNIQUE: CT contrast dose: 100 ml of intravenous Isovue 370. CT technique: Helical scanning is acquired. 2 mm axial images are reformatted. Maximal intensity projection and multiplanar re-formation images are generated along with 3-D surface rendered color imaging which is viewed rotational. FINDINGS: The distal vertebral arteries are widely patent and unremarkable. There is some vascular calcification in the distal vertebral arteries bilaterally. Basilar artery is intact. Superior cerebellar and posterior cerebral arteries are unremarkable. The distal internal carotid arteries are widely patent. Anterior middle cerebral arteries are intact. No vessel cutoff, franz aneurysm, or arteriovenous malformation is seen. The dural sinuses are patent. 3D surface rendered images show no additional abnormality. IMPRESSION: Mild vascular calcification in the distal vertebral arteries bilaterally. Otherwise negative CT angiography of the brain with IV contrast. <Electronically signed by Rob Pinto > 09/24/20 [id number]
--- NOTE | 2020-09-24 11:06 | REP ---
INDICATION: Suspected CVA. COMPARISON: Comparison is made with today's duplex carotid sonography. TECHNIQUE: Contrast enhancement dose is 100 mL of intravenous Isovue 370. Helical scanning is acquired. 2 mm axial images are re-formatted. Coronal and sagittal MPR images are generated. Coronal and sagittal MIP and oblique MPR images are generated. 3D surface rendered images are generated and viewed rotationally. FINDINGS: The aortic arch show some aortic tortuosity and vascular calcification. No aneurysm or dissection. There is some vascular calcification of the great vessels but no stenosis is seen. Common carotid arteries are unremarkable bilaterally and widely patent. There is minimal calcification at the carotid bifurcations bilaterally. No ICA or distal CCA stenosis is seen. The cervical internal carotid arteries are unremarkable. The vertebral arteries are widely patent and codominant. IMPRESSION: Minimal atherosclerotic plaquing. No stenosis or occlusion seen. Unremarkable CT angiography of the neck. <Electronically signed by Rob Pinto > 09/24/20 [id number]
[2020-09-24] MEDS: ASPIRIN 81 MG CHEW TABLET PO SCH (11:41)
[2020-09-24] MEDS: CLOPIDOGREL 75 MG TAB PO SCH (11:41)
--- NOTE | 2020-09-24 11:51 | REP ---
INDICATION: CVA vs MS. COMPARISON: None. Comparison is made with CT brain from September 23, 2020.. TECHNIQUE: Axial and sagittal imaging planes are utilized for T1 and T2-weighted scans. Sequences include spin-echo, fast spin echo, FLAIR, and diffusion weighted sequences. Contrast enhancement dose is 20 mL of intravenous ProHance. FINDINGS: No bony calvarial lesion is seen. Craniocervical junction and upper cervical cord are normal in appearance. There is no MR evidence of significant paranasal sinus disease. No intraorbital abnormality is seen. There is extensive periventricular and subcortical white matter it them at edema and T2 hyperintensity on FLAIR and turbo spin echo T2 weighted scans bilaterally in the supratentorial brain. There is some T2 hyperintensity involving the corpus callosum particularly anteriorly. Periventricular white matter T2 hyperintensity is seen in the temporal and occipital lobes as well as frontal and parietal regions bilaterally. There are corresponding low T1 signal intensity lesions in the periventricular white matter of the right parietal lobe and left parietal lobe. On the right these are well-defined and smaller. On the left there is a ill-defined low T1 signal intensity lesion for of roughly 14 mm in diameter corresponding to the low-density area in and on CT study in this location. This shows T2 hyperintensity and, restricted diffusion on diffusion-weighted scans. No other focus of restricted diffusion is seen. This 14 mm left parietal periventricular white matter lobe lesion could be acute ischemia. Some acute or active demyelinating lesions can cause restricted diffusion as well. There is no other evidence to suggest acute ischemia on diffusion-weighted scans. Post-contrast images demonstrate that there is no evidence of abnormal intracranial parenchymal contrast enhancement. No mass, extra-axial fluid collection, hemorrhage, or midline shift is seen. IMPRESSION: Extensive multifocal T2 hyperintensity lesions in the periventricular and subcortical white matter bilaterally as well as in the corpus callosum. These lesions are suggestive of demyelinating disease although atherosclerotic small-vessel changes may have a similar appearance. There is 1 focus of restricted diffusion in the lesion in the left periventricular white matter of the parietal lobe which could be acute ischemia. No abnormal contrast enhancement.. <Electronically signed by Rob Pinto > 09/24/20 [id number]
[2020-09-24 14:00] VITALS: BP 152/90
[2020-09-24] MEDS: allopurinoL 300 MG TAB PO SCH (17:01)
[2020-09-24] MEDS: PRAVASTATIN 20 MG TAB PO SCH (20:34)
[2020-09-24 20:35] VITALS: BP 162/90
[2020-09-24] MEDS ORDERED: HumaLOG INSULIN (NovoLOG) PER UNIT SC SCH (21:00)
[2020-09-25] MEDS: HEPARIN SOD (PORCINE) 5000UNITS/ML 1ML VIAL/SYRINGE SQ SCH ×2 (05:48→12:59)
[2020-09-25] MEDS: LEVOTHYROXINE 112MCG TABLET (0.112MG) PO SCH (05:48)
[2020-09-25 06:00] VITALS: BP 138/82
[2020-09-25 06:26] LABS: HEMATOCRIT 36.9 % (42.0-52.0); HEMOGLOBIN 12.1 g/dl (13.5-17.5); MEAN CORPUSCULAR HEMOGLOBIN 29.4 pg (27.0-33.0); MEAN CORPUSCULAR HGB CONC 32.8 g/dl (32.0-36.5); MEAN CORPUSCULAR VOLUME 89.8 fl (80.0-96.0); PLATELET COUNT, AUTOMATED 188 10^3/uL (150-450); RED BLOOD COUNT 4.11 10^6/uL (4.30-6.10); WHITE BLOOD COUNT 6.1 10^3/uL (4.0-10.0)
[2020-09-25 06:47] LABS: BLOOD UREA NITROGEN 19 MG/DL (7-18); CALCIUM LEVEL 8.9 MG/DL (8.8-10.2); CARBON DIOXIDE LEVEL 26 MEQ/L (21-32); CHLORIDE LEVEL 108 MEQ/L (98-107); CREATININE FOR GFR 1.05 MG/DL (0.70-1.30); GLOMERULAR FILTRATION RATE > 60.0 (>42); GLUCOSE, FASTING 100 MG/DL (70-100); POTASSIUM SERUM 3.9 MEQ/L (3.5-5.1); SODIUM LEVEL 141 MEQ/L (136-145)
[2020-09-25] MEDS: HumaLOG INSULIN (NovoLOG) PER UNIT SC SCH ×3 (07:03→17:26)
[2020-09-25] MEDS: PANTOPRAZOLE 40MG TAB (PROTONIX) PO SCH (08:21)
[2020-09-25] MEDS: CLOPIDOGREL 75 MG TAB PO SCH (08:21)
[2020-09-25] MEDS: DOXAZOSIN MESYLATE 1 MG TAB PO SCH ×2 (08:21→19:38)
[2020-09-25] MEDS: ASPIRIN 81 MG CHEW TABLET PO SCH (08:21)
[2020-09-25] MEDS: DOXYCYCLINE HYCLATE 100MG TABLET PO SCH (08:21)
[2020-09-25] MEDS: oxyBUTYnin 5 MG TAB PO SCH ×2 (08:22→19:35)
[2020-09-25 14:00] VITALS: BP 145/90
--- NOTE | 2020-09-25 14:44 | DS.PDOC ---
Discharge Summary General Date of Admission Sep 23, 2020 at 22:26 Date of Discharge 09/25/2020 Attending Physician: PORTER ELIZONDO MD Discharge Summary PROCEDURES PERFORMED DURING STAY: [None]. ADMITTING DIAGNOSES: suspected CVA DM2 BPH GERD HYPOTHYROID GOUT DISCHARGE DIAGNOSES: L parietal lobe ischemic CVA DM2 BPH GERD HYPOTHYROID GOUT COMPLICATIONS/CHIEF COMPLAINT: Weakness Of Right Arm. HISTORY OF PRESENT ILLNESS: Patient is a 74 year old male who presented to the [facility] ER with complaint of right arm weakness. Patient stated that he had woken up to go to the bathroom around 0500 on 09/23. When he finished using the bathroom he went to flush the toilet however his right arm felt weak. He was unable to press down on the flusher. After this he walked to the kitchen to get something to eat. He states that he chronically has right foot drop and is unable to say whether he felt weaker or not. 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 He then took and tylenol and fell asleep on his recliner where he awakened at 1100. He went to go make a sandwich and once again noticed that he was having difficulty using his right hand. Around 1430 he took another nap and awoke at 1600 at which point he noticed that he was still weak in his right arm/hand. He had called his who is currently out of town and recommended that he go to urgent care. The patient then drove to urgent care. He denied any difficulty driving. He denied any difficulty using the gas pedal or driving his car. When he got to the urgent car e he felt the line was too long and went home with plans to go back later in the night. Around 1900 he went back to urgent care where they sent him to the ER In the ER the patient was vitally stable. He received a CT scan of the head which demonstrated no acute intracranial pathology however prominent scattered bilateral hypodensities of the periventricular and deep subcortical white matter were noted. In the ER the patient stated that he continues to have weakness of his right arm and hand. He states that his right foot is about the same as it's been since 1984. He denies any changes in his vision. He denies difficulty swallowing. Hospitalist service was consulted and the patient was admitted for further evaluation and management HOSPITAL COURSE: #L parietal lobe CVA: patient presented with R hand weaknes. Neurology Dr. Carmona consulted. reviewed CT head, showing extensive small vessel ischemic disease, likely multiple prior L sided acute/subacute strokes with old R sided CVA. Ct per rad read indicated questionably hypodensities in periventricular white matter, however this is likely small vessel ischemic disease CTA head and neck showing no significant stenosis or occlusion. MRI showing a L parietal lobe ischemic stroke, as well as re-demonstration of hypodense lesions (likely small vessel ischemia). 2D echo ordered, reviewed with Dr. Berger, normal echo. Tele. Check lipids LDL 37. HDL 44. A1c 6.0. Obtained final recommendations from Dr. Carmona - cont ASA/plavix for 3 weeks, followed by [facility] group home, HI statin. Speech eval - no dysphagia. PT assessed and cleared. #HTN: start lisinopril 10 mg daily #DM2: ISS, CC diet. A1c. 6.0. hypoglycemia precautions. #BPH: doxazosin, oxybutinin. Doxy for chornic UTI. #GERD: ppi #Hypothyroidism: synthroid #Gout: allopurinol Clarified allergy to NSAID: previously took ibuprofen was advised to moderate. No allergic symptoms to NSAIDs ie rash, respiratory compromise. Cont asa. DVT ppx: heparin SQ q8h. DISCHARGE MEDICATIONS: Please see below. ALLERGIES: Please see below. PHYSICAL EXAMINATION ON DISCHARGE: VITAL SIGNS: Please see below. General: NAD, comfortable HEENT: PERRLA, EOMI, sclerae clear Neck: supple, normal ROM, no JVD Respiratory: lungs CTAB, no wheeze, no rales, no crackles CVS: RRR, normal S1, S2, no murmurs Abdo: soft, no masses, no hepatosplenomegaly, BS+, no rebound tenderness Extremities: no edema, pulses 2+ MSK: no joint deformities, normal ROM Neuro: Right-sided facial droop affecting the right lower part of the face has improved mildly. Right hand animal trainer supervisor weakness improved 4+/5. Sensation intact. No dysdiadochokinesia. No nystagmus. No past pointing. Strength in the proximal arms. 5 out of 5. 5 strength in the left lower extremity. Right foot drop noted. 5 out of 5 strength in the right hip. Psych: calm, cooperative, AAO x 3 LABORATORY DATA: Please see below. IMAGING: Exam: CT Head Without Contrast Exam date and time: 09/23/2020 9:22 PM Age: 74 years old Clinical indication: Weakness, extremity and weakness, facial; Right; Additional info: Weakness/right side TECHNIQUE: Imaging protocol: Computed tomography of the head without contrast. Radiation optimization: All CT scans at this facility use at least one of these dose optimization techniques: automated exposure control; mA and/or kV adjustment per patient size (includes targeted exams where dose is matched to clinical indication); or iterative reconstruction. Other technique: STROKE PROTOCOL was implemented. COMPARISON: No relevant prior studies available. FINDINGS: Brain: Prominent scattered bilateral nonspecific hypodensities of the periventricular and deep subcortical white matter. No intracranial hemorrhage or extra-axial fluid collection. No evidence of mass effect or midline shift. James-white matter differentiation is normal. Cerebral ventricles: No ventriculomegaly. Bones/joints: No acute osseus lesion or fracture. Paranasal sinuses: Visualized sinuses are unremarkable. No fluid levels. Mastoid air cells: Unremarkable. Soft tissues: Unremarkable. IMPRESSION: 1. No acute intracranial pathology. ASPECTS score 10. 2. Prominent scattered bilateral nonspecific hypodensities of the periventricular and deep subcortical white matter. Findings may reflect chronic sequela of small-vessel ischemic change or possibly demyelinating disease. Recommend neurology consultation and further evaluation with MRI brain with and without contrast. MRI brain w/wo contrast: Extensive multifocal T2 hyperintensity lesions in the periventricular and subcortical white matter bilaterally as well as in the corpus callosum. These lesions are suggestive of demyelinating disease although atherosclerotic small-vessel changes may have a similar appearance. There is 1 focus of restricted diffusion in the lesion in the left periventricular white matter of the parietal lobe which could be acute ischemia. No abnormal contrast enhancement. CTA head Mild vascular calcification in the distal vertebral arteries bilaterally. Otherwise negative CT angiography of the brain with IV contrast. CTA neck: Minimal atherosclerotic plaquing. No stenosis or occlusion seen. Unremarkable CT angiography of the neck. 2D echo with bubble stud: reviewed with director cost Dr. Berger. No shunt seen. EF wnl. Normal R sided heart function. PROGNOSIS: good ACTIVITY: As tolerated DIET: consistent carbohydrate DISCHARGE PLAN: DC home with PCP and neurology follow up. ASA/plavix for 3 weeks followed by [facility] long term acute care registered nurse. Increased statin. Recommend podiatry eval outpatient for chronic foot drop. DISCHARGE INSTRUCTIONS: PLEASE FOLLOW UP WITH YOUR PRIMARY CARE DOCTOR WITHIN 3-5 DAYS PLEASE FOLLOW UP WITH NEUROLOGY DR. CARMONA WITHIN 2 WEEKS PLEASE SEE PODIATRY WITHIN 2 WEEKS, YOU MAY REQUIRE A REFERRAL TO PODIATRY FROM YOUR PRIMARY CARE DOCTOR. PLEASE TAKE YOUR MEDICATIONS PRESCRIBED. PLEASE CONTINUE [facility]URSING HOME (INDEFINITELY UNLESS OTHERWISE INDICATED BY NEUROLOGIST) AND PLAVIX FOR 3 WEEKS. CONTINUE TO TAKE CHOLESTEROL LOWERING MEDICATION. IF YOU DEVELOP WEAKNESS, FALL, CHEST PAIN, SHORTNESS OF BREATH, FEVERS, CHILLS, BLEEDING OR OTHERWISE WORSENING OF YOUR SYMPTOMS, PLEASE CALL 911 OR RETURN TO THE EMERGENCY DEPARTMENT. DISCHARGE CONDITION: Stable TIME SPENT ON DISCHARGE: Greater than 30 minutes. Vital Signs/I&Os Vital Signs Date Time Temp Pulse Resp B/P (MAP) Pulse Ox O2 Delivery O2 Flow Rate FiO2 09/25/20 14:00 98.4 79 18 145/90 (108) 98 Room Air I&O- Last 24 Hours up to 6 AM 09/25/20 06:00 Intake Total 1320 ml Output Total 2050 ml Balance -730 ml Laboratory Data Labs 24H Laboratory Tests 2 09/24/20 16:52: Bedside Glucose (Misc Panel) 113H 09/24/20 20:16: Bedside Glucose (Misc Panel) 139H 09/25/20 05:53: Nucleated Red Blood Cells % (auto) 0.0, Anion Gap 7L, Glomerular Filtration Rate > 60.0, Calcium Level 8.9 09/25/20 12:40: Bedside Glucose (Misc Panel) 97 CBC/BMP Laboratory Tests 09/25/20 05:53 FSBS Laboratory Tests Test 09/24/20 16:52 09/24/20 20:16 09/25/20 12:40 Range/Units Bedside Glucose (Misc Panel) 113 139 97 83-110 MG/DL Discharge Medications Scheduled Allopurinol (Zyloprim) 300 Mg Tablet, 300 MG PO QPM, (Reported) TAKES AT DINNER Aspirin (Children's Aspirin) 81 Mg Tab.chew, 81 MG PO DAILY Clopidogrel Bisulfate (Clopidogrel) 75 Mg Tablet, 75 MG PO DAILY Doxazosin Mesylate (Doxazosin Mesylate) 2 Mg Tablet, 2 MG PO BID, (Reported) Doxycycline Hyclate (Doxycycline Hyclate) 100 Mg Capsule, 100 MG PO DAILY, ( Reported) Lansoprazole (Lansoprazole) 30 Mg Capsule.dr, 30 MG PO DAILY, (Reported) Levothyroxine Sodium (Synthroid) 112 Mcg Tablet, 112 MCG PO DAILY, (Reported) Lisinopril (Lisinopril) 10 Mg Tablet, 10 MG PO DAILY Metformin HCl (Metformin HCl) 500 Mg Tablet, 500 MG PO BID, (Reported) Oxybutynin Chloride (Oxybutynin Chloride) 5 Mg Tablet, 5 MG PO BID, (Reported) Pravastatin Sodium (Pravastatin Sodium) 80 Mg Tablet, 80 MG PO QPM Tadalafil (Cialis) 5 Mg Tablet, 5 MG PO QPM, (Reported) TAKES AT DINNER Scheduled PRN Acetaminophen (Acetaminophen) 325 Mg Tablet, 650 MG PO Q6HP PRN for PAIN / FEVER Allergies Coded Allergies: NSAIDS (Non-Steroidal Anti-Inflamma (Verified Allergy, Unknown, unknwn-10 years ago per pt, 09/24/20) HAS TAKEN ASPIRIN WITH NO ISSUES PORTER ELIZONDO MD Sep 25, 2020 14:44
[2020-09-25] MEDS ORDERED: ASPI81CH8 PO (15:04)
[2020-09-25] MEDS ORDERED: CLOP75TA2 PO (15:04)
[2020-09-25] MEDS ORDERED: ACET1TAB55 PO (15:04)
[2020-09-25] MEDS ORDERED: PRAV80TA2 PO (15:04)
[2020-09-25] MEDS ORDERED: LISI10TA4 PO (15:06)
[2020-09-25] MEDS: allopurinoL 300 MG TAB PO SCH (17:29)
[2020-09-25] MEDS: PRAVASTATIN 20 MG TAB PO SCH (19:36)
[2020-09-25 19:38] VITALS: BP 150/93
--- NOTE | 2020-09-28 11:08 | CR ---
DATE OF CONSULTATION: 09/24/2020 REQUESTING PHYSICIAN: Dr. Aviles REASON FOR CONSULTATION: Right sided arm weakness. HISTORY OF PRESENT ILLNESS: Patient is a 74-year-old man with a history of diabetes, hypertension, dyslipidemia who was at his baseline state of health until he went to sleep on September 22, 2020. He woke up around 5:00 a.m. and went to the bathroom. When he tried flushing toilet he felt his right hand and arm were weak. He was unable to press down flusher. He went to kitchen to eat. Patient has chronic right foot drop since 1984 related to his back issues. He found it difficult to use a spoon when he tried eating cereal. He took Tylenol and fell asleep and woke up around 11:00 a.m. He was unable to do things in his kitchen. He took another nap and woke up around 4:00 in the afternoon and right hand and arm were still weak. He called his who was out of town and recommended him to go to Urgent Care. He drove to Urgent Care and was sent to the Emergency Department in the evening. His CT scan of head in the Emergency Department showed multiple bilateral hypodensities in periventricular and deep cerebral white matter. Radiologist dictated demyelinating versus small vessel ischemia disease of brain. I was consulted about him this morning. I recommended stat CTA of head and neck after reviewing CT scan of his brain which showed left more than right deep cerebral white matter hypodensities suspicious for subacute stroke. I recommended MRI of brain and stat CT angiography of head and neck. MRI brain was reviewed and showed left deep cerebral white matter acute ischemic stroke and multiple white matter lesions and foci some of which are periventricular with differential diagnosis of small vessel ischemic disease of brain with confluence of lesions and demyelinating disease of brain. CT angiography of head and neck was reviewed and showed mild atherosclerosis of brain and neck. Patient has history of chronic back pain with right foot drop. He has had right foot drop since 1984 due to foraminal stenosis per history. He denies any headaches, neck pain, dysphagia, dysarthria, diplopia, urinary incontinence, falls, loss of consciousness. PAST MEDICAL HISTORY: * Hypertension. * Prostate enlargement. * Diabetes. 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 PAST SURGICAL HISTORY: * Cholecystectomy. * Inguinal hernia repair. SOCIAL HISTORY: He lives alone. He is a retired construction safety consultant. He follows with his primary care physician Dr. Lopez. . He denies smoking, alcohol or illicit drugs. FAMILY HISTORY: Mother of massive heart attack. Father had stroke. REVIEW OF SYSTEMS: All systems were reviewed and found to be noncontributory except as mentioned in the History of Present Illness. HOME MEDICATIONS: * Allopurinol 300 mg by mouth daily. * Doxazosin 2 mg by mouth twice a day. * Doxycycline 100 mg by mouth daily. * Prevacid 30 mg by mouth daily. * Levothyroxine 112 mcg by mouth daily. * Metformin 500 mg by mouth twice a day. * Oxybutynin 5 mg by mouth twice a day. * Pravastatin 40 mg by mouth daily. * Cialis 5 mg by mouth at bedtime p.r.n. ALLERGIES: NSAIDS. PHYSICAL EXAMINATION: Temperature 97.6, pulse 81, respiratory rate 18, blood pressure 152/90, 97% saturation on room air. Heart: Regular rate and rhythm. Lungs: Clear to auscultation. Abdomen: Soft, nontender, nondistended. Musculoskeletal/extremities: No pedal edema, no musculoskeletal abnormalities. He has a right sided foot drop. He has slowing of right hand rapid finger movements. Strength in the rest of the right arm is 5-/5 and right leg is 5/5 except right foot drop which is chronic. Left sided strength is 5/5. Deep tendon reflexes are 1+ throughout. Plantars are downgoing. Normal sensation throughout except right arm and leg where he feels decreased touch and vibration sensation. Gait is unsteady. Skin: No rash. Neurological: No signs of meningeal irritation. Patient is awake, alert, oriented to place, person and time. Normal speech comprehension and interpretation. HEENT: Extraocular muscles are intact. No facial weakness. Tongue and uvula are midline. ASSESSMENT: * Left parietal deep cerebral white matter acute ischemic stroke. * Small vessel versus demyelinating disease of brain, but I favor former to be more likely differential diagnosis due to his medical background. * Chronic back pain with right foot drop. * Diabetic peripheral neuropathy. PLAN: * Continue telemetry monitoring and do echocardiogram. * Aspirin 81 mg by mouth daily. * Plavix 75 mg by mouth daily and Plavix can be discontinued after 3 weeks. * Continue pravastatin 40 mg by mouth daily. * Physical and occupational therapy. * Follow with our office in 1-2 weeks after hospital discharge. * Further testing to rule out demyelinating disease on outpatient basis. We do not want to do spinal tap in the setting of acute ischemic stroke and stopping his anti-platelet medications. JAISOND
== END 2020-09-25 20:34 | disposition home health service (06) | DRG 66 ==
LOC: M ED 20:56 → M ED INP 22:26 → ENRESERV 23:36 → M MSPAV 09-24 00:35
PROVIDERS: ADMIT Internal Medicine; ATTEND Family Medicine
DX: I63.59 Cerebral infarction due to unspecified occlusion or stenosis of other cerebral artery (principal); I10 Essential (primary) hypertension; N40.1 Benign prostatic hyperplasia with lower urinary tract symptoms; E11.9 Type 2 diabetes mellitus without complications; M54.5 Low back pain; M21.371 Foot drop, right foot; R33.9 Retention of urine, unspecified; E03.9 Hypothyroidism, unspecified; K21.9 Gastro-esophageal reflux disease without esophagitis; M10.9 Gout, unspecified; Z88.6 Allergy status to analgesic agent; Z79.84 Long term (current) use of oral hypoglycemic drugs; Z79.899 Other long term (current) drug therapy

== ENCOUNTER → 2020-11-06 | Outpatient (CLI) | payer MEDICARE, OTHER ==
[~2020-11-06] MED LIST: ACET1TAB55 PO; ASPI81CH8 PO; CIAL5TAB PO; CLOP75TA2 PO; DOXA1TAB41 PO; DOXY100C PO; LANS30CA PO; LEVO112T2 PO; LISI10TA4 PO; METF10004 PO; METF500T13 PO; OXYB5TAB10 PO; PRAV40TA2 PO; PRAV80TA2 PO; SYNT112T2 PO; ZYLO300T6 PO
[2020-11-06 14:35] LABS: HEMATOCRIT 37.7 % (42.0-52.0); HEMOGLOBIN 12.2 g/dl (13.5-17.5); MEAN CORPUSCULAR HEMOGLOBIN 29.4 pg (27.0-33.0); MEAN CORPUSCULAR HGB CONC 32.4 g/dl (32.0-36.5); MEAN CORPUSCULAR VOLUME 90.8 fl (80.0-96.0); PLATELET COUNT, AUTOMATED 209 10^3/uL (150-450); RED BLOOD COUNT 4.15 10^6/uL (4.30-6.10); WHITE BLOOD COUNT 5.4 10^3/uL (4.0-10.0)
[2020-11-06 14:51] LABS: ALBUMIN 3.8 GM/DL (3.2-5.2); ALT/SGPT 20 U/L (12-78); BILIRUBIN,TOTAL 0.5 MG/DL (0.2-1.0); BLOOD UREA NITROGEN 30 MG/DL (7-18); CALCIUM LEVEL 9.1 MG/DL (8.8-10.2); CARBON DIOXIDE LEVEL 26 MEQ/L (21-32); CHLORIDE LEVEL 107 MEQ/L (98-107); CHOLESTEROL LEVEL 109 MG/DL (<200); CHOLESTEROL RISK RATIO 2.477 (<5); CREATININE FOR GFR 1.12 MG/DL (0.70-1.30); GLOMERULAR FILTRATION RATE > 60.0 (>42); GLUCOSE, FASTING 105 MG/DL (70-100); HDL CHOLESTEROL 44 MG/DL (>40); LDL CHOLESTEROL 56 MG/DL (<100); NON-HDL-C 65 MG/DL; POTASSIUM SERUM 4.3 MEQ/L (3.5-5.1); PROSTATIC SPECIFIC AG MONITOR 3.08 NG/ML (< 4.00); SODIUM LEVEL 139 MEQ/L (136-145); TOTAL PROTEIN 6.5 GM/DL (6.4-8.2); TRIGLYCERIDES LEVEL 46 MG/DL (<150)
[2020-11-06 15:11] LABS: HEMOGLOBIN A1c 6.1 %
== END ==
LOC: M WUC 10:23
PROVIDERS: ATTEND Family Medicine
DX: R53.83 Other fatigue (principal); I10 Essential (primary) hypertension; E03.9 Hypothyroidism, unspecified; E11.9 Type 2 diabetes mellitus without complications; R97.20 Elevated prostate specific antigen [PSA]

== ENCOUNTER → 2020-12-18 | Outpatient (CLI) | payer MEDICARE, OTHER ==
[~2020-12-18] MED LIST changes: +LISI10TA22 PO; -LISI10TA4 PO
[2020-12-18 16:54] LABS: BLOOD UREA NITROGEN 27 MG/DL (7-18); CARBON DIOXIDE LEVEL 30 MEQ/L (21-32); CHLORIDE LEVEL 104 MEQ/L (98-107); CREATININE FOR GFR 1.19 MG/DL (0.70-1.30); GLOMERULAR FILTRATION RATE > 60.0 (>42); GLUCOSE, FASTING 66 MG/DL (70-100); POTASSIUM SERUM 4.5 MEQ/L (3.5-5.1); SODIUM LEVEL 141 MEQ/L (136-145)
[2020-12-18 16:55] LABS: ALBUMIN 3.8 GM/DL (3.2-5.2); ALT/SGPT 18 U/L (12-78); BILIRUBIN,TOTAL 0.3 MG/DL (0.2-1.0); CALCIUM LEVEL 9.5 MG/DL (8.8-10.2); TOTAL PROTEIN 6.3 GM/DL (6.4-8.2)
== END ==
LOC: M WUC 12:16
PROVIDERS: ATTEND Psychiatry & Neurology Neurology
DX: N13.9 Obstructive and reflux uropathy, unspecified (principal)

== ENCOUNTER → 2020-12-22 | Outpatient (CLI) | payer MEDICARE, OTHER ==
--- NOTE | 2020-12-22 08:28 | REP ---
INDICATION: OTHER OBSTRUCTIVE AND REFLUX UROPATHY COMPARISON: None TECHNIQUE: Real time camarena scale ultrasound examination using curved array transducer. FINDINGS: Right kidney measures 15.4 x 6.7 x 5.8 cm and demonstrates marked hydronephrosis and proximal hydroureter as well as 4.5 x 4.0 x 3.5 cm cortical cyst. No obvious nephrolithiasis identified. Left kidney measures 12.9 x 6.1 x 6.1 cm and demonstrates marked hydronephrosis and proximal hydroureter along with 18 x 16 x 9 mm calculus at the ureteropelvic junction. The bladder is markedly distended and measures greater than 23 x 12 x 18 cm (3290 cc). The prostate gland is enlarged and heterogeneous measuring 6.8 x 5.5 x 5.9 cm (115 cc). IMPRESSION: 1. Relatively symmetric marked bilateral hydroureteronephrosis along with 4.5 cm right renal cyst and 18 mm left UPJ stone. 2. Markedly distended bladder may be secondary to outlet obstruction by enlarged prostate gland <Electronically signed by Kemal Reese > 12/22/20 [id number]
== END ==
LOC: M RAD 07:32
PROVIDERS: ATTEND Psychiatry & Neurology Neurology
DX: N13.30 Unspecified hydronephrosis (principal); N40.1 Benign prostatic hyperplasia with lower urinary tract symptoms; N13.8 Other obstructive and reflux uropathy
CPT/HCPCS: 51702; 51798; 76775; G0463

== ENCOUNTER → 2020-12-24 | Outpatient (CLI) | payer MEDICARE, OTHER ==
[~2020-12-24] MED LIST changes: -LISI10TA22 PO; +LISI10TA4 PO
--- NOTE | 2020-12-24 08:36 | REP ---
INDICATION: URINARY RETENTION, KIDNEY STONE COMPARISON: None TECHNIQUE: Axial noncontrast images from the lung bases to the pubic symphysis with coronal and sagittal reformations. This CT examination was performed using the following dose reduction techniques: Automated exposure control, adjustment of mA and/or kv according to the patient's size, and use of iterative reconstruction technique. FINDINGS: The kidneys demonstrate severe bilateral grade 3/4 hydroureteronephrosis. The right kidney includes 1 mm nonobstructing calculus and 4.2 cm presumed posterior cortical renal cyst. The left kidney includes 16 mm nonobstructing intrarenal calculus. No obstructing ureteral calculi are identified. A Phipps catheter is positioned within a homogeneously irregular thick walled bladder which cannot be further evaluated. There is evidence for prostatomegaly with the prostate gland measuring roughly 5.8 cm diameter. Liver, spleen, pancreas, and bilateral adrenal glands are normal. Evidence for prior cholecystectomy noted. Diffuse fecal stasis noted without bowel obstruction or obvious acute inflammatory process. Pelvis includes bladder and prostate gland as described above. No pelvic free fluid. No obvious pelvic, retroperitoneal, or intraperitoneal adenopathy noted. Abdominal aorta without aneurysm. No ascites. No free air. Surrounding musculoskeletal structures demonstrate age-related changes without acute osseous abnormality. IMPRESSION: Urinary tract findings as described above including bilateral grade 3/4 hydroureteronephrosis, irregular thick walled collapsed bladder and prostatomegaly along with right renal cyst and left renal nephrolith. <Electronically signed by Kemal Reese > 12/24/20 [id number]
== END ==
LOC: M RAD 07:41
PROVIDERS: ATTEND Nurse Practitioner Family
DX: R33.9 Retention of urine, unspecified (principal); N13.2 Hydronephrosis with renal and ureteral calculous obstruction; N28.1 Cyst of kidney, acquired; N40.0 Benign prostatic hyperplasia without lower urinary tract symptoms

== ENCOUNTER → 2021-01-19 | Outpatient (CLI) | payer MEDICARE, OTHER ==
[~2021-01-19] MED LIST changes: +LISI10TA22 PO; -LISI10TA4 PO
[2021-01-19 12:16] LABS: HEMATOCRIT 38.6 % (42.0-52.0); HEMOGLOBIN 12.4 g/dl (13.5-17.5); MEAN CORPUSCULAR HEMOGLOBIN 29.5 pg (27.0-33.0); MEAN CORPUSCULAR HGB CONC 32.1 g/dl (32.0-36.5); MEAN CORPUSCULAR VOLUME 91.7 fl (80.0-96.0); PLATELET COUNT, AUTOMATED 215 10^3/uL (150-450); RED BLOOD COUNT 4.21 10^6/uL (4.30-6.10); WHITE BLOOD COUNT 7.2 10^3/uL (4.0-10.0)
[2021-01-19 12:27] LABS: PROTHROMBIN TIME 13.4 SECONDS (12.5-14.3)
[2021-01-19 12:51] LABS: ALBUMIN 3.6 GM/DL (3.2-5.2); ALT/SGPT 19 U/L (12-78); BILIRUBIN,TOTAL 0.3 MG/DL (0.2-1.0); BLOOD UREA NITROGEN 28 MG/DL (7-18); CALCIUM LEVEL 9.3 MG/DL (8.8-10.2); CARBON DIOXIDE LEVEL 30 MEQ/L (21-32); CHLORIDE LEVEL 102 MEQ/L (98-107); CHOLESTEROL LEVEL 120 MG/DL (<200); CHOLESTEROL RISK RATIO 2.448 (<5); CREATININE FOR GFR 1.07 MG/DL (0.70-1.30); GLOMERULAR FILTRATION RATE > 60.0 (>42); GLUCOSE, FASTING 92 MG/DL (70-100); HDL CHOLESTEROL 49 MG/DL (>40); LDL CHOLESTEROL 58 MG/DL (<100); NON-HDL-C 71 MG/DL; POTASSIUM SERUM 4.6 MEQ/L (3.5-5.1); PROSTATIC SPECIFIC AG MONITOR 2.91 NG/ML (< 4.00); SODIUM LEVEL 137 MEQ/L (136-145); TOTAL PROTEIN 6.2 GM/DL (6.4-8.2); TRIGLYCERIDES LEVEL 67 MG/DL (<150)
[2021-01-19 13:17] LABS: HEMOGLOBIN A1c 6.1 %
--- NOTE | 2021-01-19 15:38 | REP ---
INDICATION: HTN, PRE-OP/ LABS . COMPARISON: Comparison chest x-ray September 23, 2020. TECHNIQUE: Two views.. FINDINGS: The lungs are well inflated and free of infiltrate. The pleural angles are sharp. The heart size is normal. Pulmonary vasculature is not increased. No significant bony abnormality is seen. There are degenerative disc changes in the thoracic spine and S-shaped scoliosis is again noted. No acute bony abnormality. IMPRESSION: No active disease.. <Electronically signed by Rob Pinto > 01/19/21 [id number]
--- NOTE | 2021-01-22 00:17 | ECGEPIP ---
[facility] Test Date: 2021-01-19 Pat Name: CIARAN ROTH Department: Room: - Gender: Male Cardiothoracic Surgeon: drew : 1945 Requested By: Shaheed Kelsey Order Number: [id number] Reading MD: Mustapha Berger Measurements Intervals Bartlett Rate: 85 P: 19 OK: 158 QRS: -42 QRSD: 130 T: 26 QT: 392 QTc: 466 Interpretive Statements Poor data quality, interpretation may be adversely affected Normal sinus rhythm Left axis deviation, LAHB Right bundle branch block Compared to the 2 tracings in the system, no significant changes but PVCs were n noted Electronically Signed on 01-22-2021 0:17:28 EST by Mustapha Berger
== END ==
LOC: M LAB 11:39
PROVIDERS: ATTEND Family Medicine
DX: Z01.810 Encounter for preprocedural cardiovascular examination (principal); I10 Essential (primary) hypertension

== ENCOUNTER → 2021-01-26 | Outpatient (REF) | payer MEDICARE, OTHER ==
[2021-01-26 18:21] LABS: APPEARANCE, URINE CLOUDY (CLEAR); BACTERIA, URINE AUTO 1+ (NEGATIVE); BILIRUBIN, URINE AUTO NEGATIVE (NEGATIVE); BLOOD, URINE BLOOD 3+ (NEGATIVE); COLOR, URINE YELLOW (YELLOW); GLUCOSE, URINE (UA) AUTO NEGATIVE (NEGATIVE); KETONE, URINE AUTO NEGATIVE (NEGATIVE); LEUKOCYTE ESTERASE, URINE AUTO 2+ (NEGATIVE); NITRITE, URINE AUTO NEGATIVE (NEGATIVE); PROTEIN, URINE AUTO 2+ mg/dL (NEGATIVE); RBC, URINE AUTO TNTC /HPF (0-3); SPECIFIC GRAVITY URINE AUTO 1.013 (1.002-1.035); SQUAMOUS EPITHELIAL CELL UR AU 0 /HPF (0-6); UROBILINOGEN, URINE AUTO 0.2 mg/dL (0.0-2.0); WBC, URINE AUTO 25 /HPF (0-3)
== END ==
LOC: M SMT 16:56
PROVIDERS: ATTEND Nurse Practitioner Women's Health
DX: Z01.818 Encounter for other preprocedural examination (principal); R33.9 Retention of urine, unspecified; N13.30 Unspecified hydronephrosis

== ENCOUNTER → 2021-01-29 | Outpatient (CLI) | payer MEDICARE, OTHER | LOC: M LABSMTC 10:22 | PROVIDERS: ATTEND Anesthesiology | DX: Z01.812 Encounter for preprocedural laboratory examination (principal); Z20.822 Contact with and (suspected) exposure to COVID-19 ==

== ENCOUNTER 2021-02-03 06:17 | Day surgery (SDC) | payer MEDICARE, OTHER ==
[~2021-02-03] VITALS: Ht 175.3 cm; Wt 95.3 kg
[2021-02-03] MEDS ORDERED: LR 1,000 ML IV ONE (07:00)
[2021-02-03] MEDS ORDERED: ceFAZolin SOD 2 GM in IV 1 EA IV ONE (07:00)
[2021-02-03] MEDS ORDERED: CONRAY-60 60% 50ML VIAL (Q9961) As Ordered ONE (07:16)
[2021-02-03] MEDS ORDERED: LIDOCAINE 2% 100MG/5ML SDV (FOR ANES.) As Ordered ONE (07:18)
[2021-02-03] MEDS ORDERED: METOCLOPRAMIDE INJ 10MG/2ML VIAL (J2765 PER 1) As Ordered ONE (07:18)
[2021-02-03] MEDS ORDERED: propofoL 200 MG/20 ML VIAL As Ordered ONE (07:18)
[2021-02-03] MEDS ORDERED: fentaNYL 100 MCG/2 ML INJECTION (J3010) As Ordered ONE (07:18)
[2021-02-03] MEDS ORDERED: ONDANSETRON 4MG/2ML VIAL As Ordered ONE (07:18)
[2021-02-03] MEDS ORDERED: ASPIRIN 81 MG CHEW TABLET As Ordered ONE (07:26)
[2021-02-03] MEDS ORDERED: ASPIRIN 81 MG CHEW TABLET PO ONE (07:30)
[2021-02-03] MEDS ORDERED: SULF1TAB93 PO (08:09)
--- NOTE | 2021-02-03 10:07 | REP ---
INDICATION: BILATERAL RETROGRADE PYELOGRAMS,POSSIBLE STENT PLACEMENTS. COMPARISON: CT 12/24/2020. TECHNIQUE: Multiple C-arm views abdomen pelvis. FINDINGS: Contrast partially opacifies moderately dilated pelvocaliceal systems and ureters bilaterally. A right ureteral stent is placed, the proximal end is in the region of the right renal pelvis and the distal end the urinary bladder. Left ureteral stent is placed, the proximal end is in the region of the renal pelvis and the distal end in the urinary bladder. IMPRESSION: 1 minutes 41 seconds fluoroscopy time utilized. <Electronically signed by Vijay James > 02/03/21 [id number]
[2021-02-03] MEDS ORDERED: oxyCODONE 5MG TAB PO PRN (10:25)
[2021-02-03] MEDS ORDERED: ONDANSETRON 4MG/2ML VIAL IV PRN (10:25)
[2021-02-03] MEDS ORDERED: fentaNYL 100 MCG/2 ML INJECTION (J3010) IV PRN (10:25)
[2021-02-03] MEDS ORDERED: PERCOCET 5MG/325MG TAB PO PRN (10:30)
--- NOTE | 2021-02-03 11:20 | RO ---
OPERATIVE NOTE DATE OF OPERATION: 02/03/2021 PREOPERATIVE DIAGNOSIS: Bilateral hydronephrosis, left kidney stone. POSTOPERATIVE DIAGNOSIS: Bilateral hydronephrosis, left kidney stone. PROCEDURE: Cystoscopy, bilateral ureteroscopy with left-sided laser lithotripsy, bilateral retrograde pyelograms with intraop interpretation of images, bilateral ureteral stent placement. SURGEON: Foreign Hurd MD RV DETAILER: None. ANESTHESIA: General. OPERATIVE INDICATIONS: This is a 75-year-old male with urinary retention and bilateral hydronephrosis which was seen to be persistent despite catheter placement. There is concern of prostate pushing on the bladder causing J-hooking of the ureters. He is brought to the operating room today to investigate this. Also, of note, he had an approximately 1.5 cm size left-sided kidney stone. DESCRIPTION OF PROCEDURE: The patient was brought to the operating room and general anesthesia was induced. Prophylactic antibiotics were infused. He was placed in the dorsal lithotomy position and prepped and draped in usual sterile fashion. A rigid cystoscope was inserted in the urethral meatus and advanced into the bladder. At this point a 5-Afghan open-ended ureteral catheter was utilized to cannulate the right ureteral orifice. A retrograde pyelogram was performed and was notable for a very tortuous right ureter all the way up to the kidney. There was moderate hydroureteronephrosis down to the level of the bladder. There were no filling defects. I then advanced a wire up the right collecting system. I then advanced a ureteral access up the right collecting system. I went up the access sheath with a flexible ureteroscope and then examined the right kidney thoroughly. It was severely hydronephrotic. There was a very tiny stone fragment inside the right kidney that was small enough to pass. No tumors or other abnormalities were seen. I then withdrew the ureteroscope along the with the access sheath and no abnormalities other than a tortuous ureter were seen. I utilized the guidewire to advance a 7-Afghan x 26 cm black silicone ureteral stent into the right collecting. The wire was removed and there was adequate curls of the stent in right renal pelvis and bladder. I then advanced a 5-Afghan open-ended ureteral catheter into the left ureter. A retrograde pyelogram was performed. It was also notable for a very tortuous ureter all the way up to the level of the kidney. There was moderate to severe hydroureteronephrosis. There were no filling defects. I then advanced a guidewire up the left collecting system. I then advanced a ureteral access sheath up left collecting system. I then advanced a flexible ureteroscope into the access sheath and into the left collecting system. Of note, the left side was more tortuous than the right. I had a very difficult time getting the ureteroscope into the kidney. I ultimately was able to do this. The left kidney was thoroughly examined and no tumors were seen. There was an approximately 1.5 cm stone seen. This stone was fragmented into smaller pieces using a 272-micron laser fiber. I did not extract any stone fragments as it would have been very difficult to get the scope in and out of the kidney. I therefore dusted the stone into smaller pieces that should be able to pass. At this point I withdrew the ureteroscope along with access sheath and then I utilized a guidewire to advance a 7-Afghan x 26 cm black silicone stent into the left collecting system. The wire was removed and there were adequate curls of the stent in left renal pelvis and in the bladder. At this point I removed the cystoscope and advanced a 16-Afghan Coude catheter into the bladder. The balloon was filled with 10 liters sterile water and the catheter was connected to gravity drainage. This marked the conclusion of the procedure. The patient was taken out of the dorsal lithotomy position, awakened from anesthesia and transported to recovery room in stable condition. ESTIMATED BLOOD LOSS: 5 mL. COMPLICATIONS: None. SPECIMEN: None. 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 We will try to keep the stent in for hopefully up to a year. We will need to get follow up renal ultrasound to assess for resolution of hydronephrosis. ARLEY
[2021-02-03 11:50] VITALS: BP 122/78
== END 2021-02-03 12:37 | disposition home or self-care (01) ==
LOC: M SDC 06:17
PROVIDERS: ATTEND Urology
DX: N20.0 Calculus of kidney (principal); N13.30 Unspecified hydronephrosis; N40.0 Benign prostatic hyperplasia without lower urinary tract symptoms; I10 Essential (primary) hypertension; Z86.73 Personal history of transient ischemic attack (TIA), and cerebral infarction without residual deficits; E11.9 Type 2 diabetes mellitus without complications; E03.9 Hypothyroidism, unspecified; R33.9 Retention of urine, unspecified; Z88.8 Allergy status to other drugs, medicaments and biological substances; Z79.82 Long term (current) use of aspirin; Z79.02 Long term (current) use of antithrombotics/antiplatelets; Z79.84 Long term (current) use of oral hypoglycemic drugs; Z79.899 Other long term (current) drug therapy; E78.5 Hyperlipidemia, unspecified
CPT/HCPCS: 52332; 52356; 74420; C1769; C1894; C2617; J0690; J2405; J2765; J3010; Q9961

== ENCOUNTER → 2021-04-02 | Outpatient (CLI) | payer MEDICARE, OTHER ==
[~2021-04-02] MED LIST changes: +BACTDSTA PO
[2021-04-02 11:11] LABS: HEMATOCRIT 40.2 % (42.0-52.0); HEMOGLOBIN 13.4 g/dl (13.5-17.5); MEAN CORPUSCULAR HEMOGLOBIN 30.7 pg (27.0-33.0); MEAN CORPUSCULAR HGB CONC 33.3 g/dl (32.0-36.5); PLATELET COUNT, AUTOMATED 213 10^3/uL (150-450); RED BLOOD COUNT 4.37 10^6/uL (4.30-6.10); WHITE BLOOD COUNT 6.2 10^3/uL (4.0-10.0)
[2021-04-02 11:53] LABS: ALBUMIN 3.6 GM/DL (3.2-5.2); ALT/SGPT 17 U/L (12-78); BILIRUBIN,TOTAL 0.6 MG/DL (0.2-1.0); BLOOD UREA NITROGEN 23 MG/DL (7-18); CALCIUM LEVEL 9.3 MG/DL (8.8-10.2); CARBON DIOXIDE LEVEL 27 MEQ/L (21-32); CHLORIDE LEVEL 105 MEQ/L (98-107); CHOLESTEROL LEVEL 114 MG/DL (<200); CHOLESTEROL RISK RATIO 2.425 (<5); CREATININE FOR GFR 1.14 MG/DL (0.70-1.30); GLOMERULAR FILTRATION RATE > 60.0 (>42); GLUCOSE, FASTING 133 MG/DL (70-100); HDL CHOLESTEROL 47 MG/DL (>40); LDL CHOLESTEROL 55 MG/DL (<100); NON-HDL-C 67 MG/DL; POTASSIUM SERUM 4.4 MEQ/L (3.5-5.1); PROSTATIC SPECIFIC AG MONITOR 4.02 NG/ML (< 4.00); SODIUM LEVEL 137 MEQ/L (136-145); TESTOSTERONE 410 NG/DL (241-827); TOTAL 25(OH) VITAMIN D 33.3 NG/ML (30.0-100.0); TOTAL PROTEIN 6.3 GM/DL (6.4-8.2); TRIGLYCERIDES LEVEL 58 MG/DL (<150)
[2021-04-02 12:37] LABS: HEMOGLOBIN A1c 6.7 %
== END ==
LOC: M WUC 09:43
PROVIDERS: ATTEND Family Medicine
DX: I10 Essential (primary) hypertension (principal); R53.83 Other fatigue; E03.9 Hypothyroidism, unspecified; Z79.899 Other long term (current) drug therapy

== ENCOUNTER → 2021-05-21 | Outpatient (CLI) | payer MEDICARE, OTHER | LOC: M WUC 11:33 | PROVIDERS: ATTEND Urology | DX: R33.9 Retention of urine, unspecified (principal) ==

== ENCOUNTER → 2021-09-27 | Outpatient (CLI) | payer MEDICARE, OTHER ==
[~2021-09-27] MED LIST changes: -DOXY100C PO; +DOXY100C3 PO
== END ==
LOC: M WUC 08:02
PROVIDERS: ATTEND Urology
DX: N13.30 Unspecified hydronephrosis (principal)
CPT/HCPCS: 36415; G0103

== ENCOUNTER → 2022-02-08 | Outpatient (CLI) | payer MEDICARE, OTHER ==
[2022-02-08 12:52] LABS: HEMOGLOBIN 13.4 g/dl (13.5-17.5); MEAN CORPUSCULAR HEMOGLOBIN 29.6 pg (27.0-33.0); MEAN CORPUSCULAR HGB CONC 33.5 g/dl (32.0-36.5); MEAN CORPUSCULAR VOLUME 88.5 fl (80.0-96.0); PLATELET COUNT, AUTOMATED 249 10^3/uL (150-450); RED BLOOD COUNT 4.52 10^6/uL (4.30-6.10); WHITE BLOOD COUNT 6.4 10^3/uL (4.0-10.0)
[2022-02-08 13:21] LABS: ALBUMIN 3.8 GM/DL (3.2-5.2); ALT/SGPT 19 U/L (12-78); BILIRUBIN,TOTAL 0.5 MG/DL (0.2-1.0); BLOOD UREA NITROGEN 23 MG/DL (7-18); CARBON DIOXIDE LEVEL 30 MEQ/L (21-32); CHLORIDE LEVEL 107 MEQ/L (98-107); CHOLESTEROL LEVEL 129 MG/DL (<200); CHOLESTEROL RISK RATIO 2.931 (<5); CREATININE FOR GFR 1.06 MG/DL (0.70-1.30); GLOMERULAR FILTRATION RATE > 60.0 (>42); GLUCOSE, FASTING 144 MG/DL (70-100); HDL CHOLESTEROL 44 MG/DL (>40); LDL CHOLESTEROL 73 MG/DL (<100); NON-HDL-C 85 MG/DL; POTASSIUM SERUM 4.4 MEQ/L (3.5-5.1); PROSTATIC SPECIFIC AG MONITOR 3.85 NG/ML (< 4.00); SODIUM LEVEL 141 MEQ/L (136-145); TOTAL PROTEIN 6.5 GM/DL (6.4-8.2); TRIGLYCERIDES LEVEL 60 MG/DL (<150)
[2022-02-08 13:23] LABS: TESTOSTERONE 462 NG/DL (241-827)
[2022-02-08 13:24] LABS: HEMOGLOBIN A1c 7.1 %
== END ==
LOC: M WUC 09:21
PROVIDERS: ATTEND Family Medicine
DX: I10 Essential (primary) hypertension (principal); R97.20 Elevated prostate specific antigen [PSA]

== ENCOUNTER → 2022-03-29 | Outpatient (CLI) | payer MEDICARE, OTHER | LOC: M WUC 13:47 | PROVIDERS: ATTEND Urology | DX: N40.1 Benign prostatic hyperplasia with lower urinary tract symptoms (principal) ==

== ENCOUNTER → 2023-01-11 | Outpatient (CLI) | payer MEDICARE, OTHER ==
[2023-01-11 17:00] LABS: FOLATE 13.22 NG/ML (>5.4)
[2023-01-11 19:23] LABS: HEMOGLOBIN A1c 7.5 % (4.0-6.0)
== END ==
LOC: M WUC 14:45
PROVIDERS: ATTEND Psychiatry & Neurology Neurology
DX: E53.8 Deficiency of other specified B group vitamins (principal); E51.9 Thiamine deficiency, unspecified; E53.1 Pyridoxine deficiency; E11.40 Type 2 diabetes mellitus with diabetic neuropathy, unspecified

== ENCOUNTER → 2023-01-27 | Outpatient (CLI) | payer MEDICARE, OTHER ==
[2023-01-27 12:20] LABS: HEMATOCRIT 42.1 % (42.0-52.0); HEMOGLOBIN 13.9 g/dl (13.5-17.5); MEAN CORPUSCULAR VOLUME 90.9 fl (80.0-96.0); PLATELET COUNT, AUTOMATED 233 10^3/uL (150-450); RED BLOOD COUNT 4.63 10^6/uL (4.30-6.10); WHITE BLOOD COUNT 7.2 10^3/uL (4.0-10.0)
[2023-01-27 12:26] LABS: PROSTATIC SPECIFIC AG MONITOR 2.75 NG/ML (< 4.00)
[2023-01-27 12:28] LABS: ALBUMIN 3.9 G/DL (3.2-5.2); ALKALINE PHOSPHATASE 100 U/L (46-116); ALT/SGPT 16 U/L (7.0-40); AST/SGOT 27 U/L (<34); BILIRUBIN,TOTAL 0.5 MG/DL (0.3-1.2); BLOOD UREA NITROGEN 30 MG/DL (9-23); CARBON DIOXIDE LEVEL 31 MMOL/L (20-31); CHLORIDE LEVEL 100 MMOL/L (98-107); CHOLESTEROL LEVEL 117 MG/DL (<200); CHOLESTEROL RISK RATIO 2.83 (<5); CREATININE FOR GFR 1.16 MG/DL (0.70-1.30); GLOMERULAR FILTRATION RATE > 60.0 (>42); GLUCOSE, FASTING 167 MG/DL (74-106); HDL CHOLESTEROL 41.3 MG/DL (>40); LDL CHOLESTEROL 63.3 MG/DL (<100); NON-HDL-C 76 MG/DL; POTASSIUM SERUM 4.6 MMOL/L (3.5-5.1); SODIUM LEVEL 136 MMOL/L (136-145); TOTAL PROTEIN 6.7 G/DL (5.7-8.2); TRIGLYCERIDES LEVEL 62 MG/DL (<150)
[2023-01-27 12:30] LABS: TESTOSTERONE 400 NG/DL (241-827); THYROID STIMULATING HORMONE 4.408 uIU/ML (0.55-4.78)
[2023-01-27 12:50] LABS: HEMOGLOBIN A1c 7.5 % (4.0-6.0)
== END ==
LOC: M WUC 09:27
PROVIDERS: ATTEND Family Medicine
DX: I10 Essential (primary) hypertension (principal); R53.83 Other fatigue; E03.9 Hypothyroidism, unspecified

== ENCOUNTER → 2023-03-27 | Outpatient (CLI) | payer MEDICARE, OTHER | LOC: M WUC 13:31 | DX: N31.0 Uninhibited neuropathic bladder, not elsewhere classified (principal) | CPT/HCPCS: 36415; G0103 ==

== ENCOUNTER → 2023-04-19 | Outpatient (CLI) | payer MEDICARE, OTHER | LOC: M EKG 17:09 | PROVIDERS: ATTEND Family Medicine | DX: Z01.818 Encounter for other preprocedural examination (principal); I10 Essential (primary) hypertension; R53.83 Other fatigue; E03.9 Hypothyroidism, unspecified ==

== ENCOUNTER → 2023-04-19 | Outpatient (CLI) | payer MEDICARE, OTHER ==
[2023-04-19 12:28] LABS: HEMATOCRIT 40.2 % (42.0-52.0); HEMOGLOBIN 13.2 g/dl (13.5-17.5); MEAN CORPUSCULAR HEMOGLOBIN 29.9 pg (27.0-33.0); MEAN CORPUSCULAR HGB CONC 32.8 g/dl (32.0-36.5); PLATELET COUNT, AUTOMATED 192 10^3/uL (150-450); RED BLOOD COUNT 4.42 10^6/uL (4.30-6.10); WHITE BLOOD COUNT 5.6 10^3/uL (4.0-10.0)
[2023-04-19 12:45] LABS: INR 1.03; PROTHROMBIN TIME 13.7 SECONDS (12.5-14.5)
[2023-04-19 12:47] LABS: HEMOGLOBIN A1c 7.4 % (4.0-6.0)
[2023-04-19 12:58] LABS: THYROID STIMULATING HORMONE 3.025 uIU/ML (0.55-4.78)
[2023-04-19 12:59] LABS: ALBUMIN 3.4 G/DL (3.2-5.2); ALKALINE PHOSPHATASE 115 U/L (46-116); ALT/SGPT 17 U/L (7.0-40); AST/SGOT 26 U/L (<34); BILIRUBIN,TOTAL 0.3 MG/DL (0.3-1.2); BLOOD UREA NITROGEN 23 MG/DL (9-23); CALCIUM LEVEL 8.3 MG/DL (8.3-10.6); CARBON DIOXIDE LEVEL 28 MMOL/L (20-31); CHLORIDE LEVEL 105 MMOL/L (98-107); CHOLESTEROL LEVEL 110 MG/DL (<200); CHOLESTEROL RISK RATIO 2.66 (<5); CREATININE FOR GFR 1.08 MG/DL (0.70-1.30); GLOMERULAR FILTRATION RATE > 60.0 (>42); GLUCOSE, FASTING 153 MG/DL (74-106); HDL CHOLESTEROL 41.3 MG/DL (>40); LDL CHOLESTEROL 52.3 MG/DL (<100); NON-HDL-C 68.7 MG/DL; SODIUM LEVEL 139 MMOL/L (136-145); TRIGLYCERIDES LEVEL 82 MG/DL (<150)
== END ==
LOC: M WUC 10:06
PROVIDERS: ATTEND Family Medicine
DX: I10 Essential (primary) hypertension (principal); R53.83 Other fatigue; E03.9 Hypothyroidism, unspecified; E11.9 Type 2 diabetes mellitus without complications

== ENCOUNTER → 2023-09-08 | Outpatient (CLI) | payer MEDICARE ==
[~2023-09-08] MED LIST changes: -OXYB5TAB10 PO; +OXYB5TAB11 PO
[2023-09-08 12:33] LABS: HEMATOCRIT 40.9 % (42.0-52.0); HEMOGLOBIN 13.4 g/dl (13.5-17.5); MEAN CORPUSCULAR HEMOGLOBIN 30.2 pg (27.0-33.0); MEAN CORPUSCULAR HGB CONC 32.8 g/dl (32.0-36.5); MEAN CORPUSCULAR VOLUME 92.3 fl (80.0-96.0); PLATELET COUNT, AUTOMATED 232 10^3/uL (150-450); RED BLOOD COUNT 4.43 10^6/uL (4.30-6.10); WHITE BLOOD COUNT 6.7 10^3/uL (4.0-10.0)
[2023-09-08 12:49] LABS: HEMOGLOBIN A1c 6.5 % (4.0-6.0)
[2023-09-08 12:57] LABS: PROSTATIC SPECIFIC AG MONITOR 4.54 NG/ML (< 4.00)
[2023-09-08 13:00] LABS: ALBUMIN 3.5 G/DL (3.2-5.2); ALKALINE PHOSPHATASE 125 U/L (46-116); ALT/SGPT 14 U/L (7.0-40); AST/SGOT 20 U/L (<34); BILIRUBIN,TOTAL 0.5 MG/DL (0.3-1.2); BLOOD UREA NITROGEN 26 MG/DL (9-23); CALCIUM LEVEL 8.5 MG/DL (8.3-10.6); CARBON DIOXIDE LEVEL 30 MMOL/L (20-31); CHLORIDE LEVEL 105 MMOL/L (98-107); CHOLESTEROL LEVEL 120 MG/DL (<200); CHOLESTEROL RISK RATIO 2.99 (<5); CREATININE FOR GFR 1.04 MG/DL (0.70-1.30); GLOMERULAR FILTRATION RATE > 60.0 (>42); GLUCOSE, FASTING 173 MG/DL (74-106); HDL CHOLESTEROL 40.1 MG/DL (>40); LDL CHOLESTEROL 66.9 MG/DL (<100); NON-HDL-C 79.9 MG/DL; POTASSIUM SERUM 4.4 MMOL/L (3.5-5.1); SODIUM LEVEL 140 MMOL/L (136-145); TOTAL PROTEIN 6.2 G/DL (5.7-8.2); TRIGLYCERIDES LEVEL 65 MG/DL (<150)
[2023-09-08 13:01] LABS: TESTOSTERONE 397 NG/DL (241-827); THYROID STIMULATING HORMONE 3.392 uIU/ML (0.55-4.78)
== END ==
LOC: M WUC 09:25
PROVIDERS: ATTEND Family Medicine
DX: I10 Essential (primary) hypertension (principal); R53.83 Other fatigue; E03.9 Hypothyroidism, unspecified; D64.9 Anemia, unspecified; R97.20 Elevated prostate specific antigen [PSA]

== ENCOUNTER → 2023-10-16 | Outpatient (REF) | payer MEDICARE, OTHER ==
[2023-10-16 19:37] LABS: BLOOD UREA NITROGEN 27 MG/DL (9-23); CALCIUM LEVEL 8.6 MG/DL (8.3-10.6); CARBON DIOXIDE LEVEL 28 MMOL/L (20-31); CHLORIDE LEVEL 105 MMOL/L (98-107); GLOMERULAR FILTRATION RATE > 60.0 (>42); GLUCOSE, FASTING 165 MG/DL (74-106); POTASSIUM SERUM 4.5 MMOL/L (3.5-5.1); SODIUM LEVEL 139 MMOL/L (136-145)
== END ==
LOC: M LAB REF 18:56
PROVIDERS: ATTEND Physician Assistant Medical
DX: Z12.5 Encounter for screening for malignant neoplasm of prostate (principal); N13.30 Unspecified hydronephrosis
CPT/HCPCS: 80048; G0103

== ENCOUNTER → 2023-11-03 | Outpatient (CLI) | payer MEDICARE, OTHER ==
[~2023-11-03] MED LIST changes: +ALLO300T2 PO; +ASPI-161 PO; +DOXA1TAB42 PO; +GLIP5TAB17 PO; +LISI5TAB11 PO; +TIZA10TA PO
== END ==
LOC: M RAD 13:57
PROVIDERS: ATTEND Family Medicine
DX: N50.89 Other specified disorders of the male genital organs (principal)

== ENCOUNTER 2023-11-06 18:57 | Inpatient (IN) | payer MEDICARE, OTHER ==
[~2023-11-06] VITALS: Ht 182.9 cm; Wt 99.6 kg
[~2023-11-06 18:57] MED LIST changes: -ALLO300T2 PO; -ASPI-161 PO; -DOXA1TAB42 PO; -GLIP5TAB17 PO; -LISI5TAB11 PO; -TIZA10TA PO
[2023-11-06] MEDS ORDERED: ACETAMINOPHEN 325 MG TAB PO ONE (19:25)
[2023-11-06] MEDS ORDERED: NS IV ONE (19:25)
[2023-11-06 19:36] LABS: VENOUS BASE EXCESS 0.5 (-2.0-2.0); VENOUS HCO3 23.1 MMOL/L (23.0-27.0); VENOUS PARTIAL PRESSURE CO2 31.4 mmHg (38.0-50.0); VENOUS PARTIAL PRESSURE O2 62.5 mmHg (30.0-50.0); VENOUS PH 7.484 UNITS (7.330-7.430); VENOUS STANDARD HCO3 24.8 MMOL/L
[2023-11-06 19:43] LABS: BASO % 0.3 % (0.0-1.0); EOS % 0.4 % (0.0-3.0); HEMATOCRIT 38.5 % (42.0-52.0); HEMOGLOBIN 13.1 g/dl (13.5-17.5); LYMPH # 0.7 10^3/uL (1.5-5.0); MEAN CORPUSCULAR VOLUME 88.1 fl (80.0-96.0); MONO # 0.8 10^3/uL (0.0-0.8); MONO % 6.7 % (2.0-8.0); NEUTROPHILS # 9.5 10^3/uL (1.5-8.5); PLATELET COUNT, AUTOMATED 244 10^3/uL (150-450); RED BLOOD COUNT 4.37 10^6/uL (4.30-6.10); WHITE BLOOD COUNT 11.3 10^3/uL (4.0-10.0)
[2023-11-06 20:00] LABS: APPEARANCE, URINE HAZY (CLEAR); BACTERIA, URINE AUTO 2+ (NEGATIVE); BILIRUBIN, URINE AUTO NEGATIVE (NEGATIVE); BLOOD, URINE BLOOD 1+ (NEGATIVE); COLOR, URINE YELLOW (YELLOW); GLUCOSE, URINE (UA) AUTO 3+ mg/dL (NEGATIVE); KETONE, URINE AUTO NEGATIVE (NEGATIVE); LEUKOCYTE ESTERASE, URINE AUTO 3+ (NEGATIVE); NITRITE, URINE AUTO POSITIVE (NEGATIVE); PROTEIN, URINE AUTO NEGATIVE (NEGATIVE); RBC, URINE AUTO 5 /HPF (0-3); SPECIFIC GRAVITY URINE AUTO 1.022 (1.002-1.035); SQUAMOUS EPITHELIAL CELL UR AU 0 /HPF (0-6); WBC, URINE AUTO 134 /HPF (0-3)
[2023-11-06 20:05] LABS: INR 1.22; PROTHROMBIN TIME 15.1 SECONDS (12.5-14.5)
[2023-11-06 20:06] LABS: PARTIAL THROMBOPLASTIN TIME 30.4 SECONDS (24.8-34.2)
[2023-11-06 20:12] LABS: AMYLASE 36 U/L (30-118)
[2023-11-06 20:13] LABS: ALBUMIN 2.9 G/DL (3.2-5.2); ALKALINE PHOSPHATASE 117 U/L (46-116); ALT/SGPT 34 U/L (7.0-40); AST/SGOT 37 U/L (<34); BILIRUBIN,DIRECT 0.2 MG/DL (<0.4); BILIRUBIN,TOTAL 0.5 MG/DL (0.3-1.2); BLOOD UREA NITROGEN 24 MG/DL (9-23); CALCIUM LEVEL 8.3 MG/DL (8.3-10.6); CARBON DIOXIDE LEVEL 23 MMOL/L (20-31); CHLORIDE LEVEL 100 MMOL/L (98-107); CREATININE FOR GFR 0.96 MG/DL (0.70-1.30); GLOMERULAR FILTRATION RATE > 60.0 (>42); GLUCOSE, FASTING 226 MG/DL (74-106); POTASSIUM SERUM 4.5 MMOL/L (3.5-5.1); SODIUM LEVEL 133 MMOL/L (136-145); TOTAL PROTEIN 6.3 G/DL (5.7-8.2)
[2023-11-06 20:19] LABS: PROCALCITONIN 0.21 ng/ml
[2023-11-06] MEDS ORDERED: ISOVUE-370 76% 100ML VIAL As Ordered ONE (20:25)
[2023-11-06] MEDS ORDERED: PIPERACILLIN/TAZOBACTAM SOD 4.5 GM in D5W MINI-BAG PLUS 50 ML IV ONE (20:30)
[2023-11-06] MEDS ORDERED: ONDANSETRON 4MG 2ML VIAL IV PRN (23:35)
[2023-11-06] MEDS ORDERED: GLUCAGON INJ 1MG VIAL SC PRN (23:35)
[2023-11-06] MEDS ORDERED: VANCOMYCIN HCL 1,500 MG, VIAL MATE ADAPTER 1 EACH in NS 250 ML IV SCH (23:35)
[2023-11-06] MEDS ORDERED: GLUCOSE 4GM CHEW TABLET PO PRN (23:35)
[2023-11-06] MEDS ORDERED: ALBUTEROL SULFATE 2.5MG/0.5ML INH NEB SOLN NEB PRN (23:35)
[2023-11-06] MEDS ORDERED: HYDROMORPHONE HCL 0.5 MG/ 0.5 ML SYRINGE IV PRN (23:35)
[2023-11-06] MEDS ORDERED: DEXTROSE 50% 50ML SYRINGE IV PRN (23:35)
[2023-11-06] MEDS ORDERED: ALLO300T2 PO (23:48)
[2023-11-06] MEDS ORDERED: TIZA10TA PO (23:48)
[2023-11-06] MEDS ORDERED: DOXA1TAB42 PO (23:48)
[2023-11-06] MEDS ORDERED: GLIP5TAB17 PO (23:48)
[2023-11-06] MEDS ORDERED: LISI5TAB11 PO (23:48)
[2023-11-06] MEDS ORDERED: ASPI-161 PO (23:48)
[2023-11-06] MEDS ORDERED: HOME MED LIST COMPLETE! XX SCH (23:50)
[2023-11-07 00:11] LABS: CHLAMYDIA DNA AMPLIFICATION NEGATIVE (NEGATIVE); GC DNA AMPLIFICATION NEGATIVE (NEGATIVE)
[2023-11-07] MEDS ORDERED: VANCOMYCIN HCL 1,000 MG, VIAL MATE ADAPTER 1 EACH in D5W 250 ML IV ONE (01:00)
[2023-11-07] MEDS ORDERED: VANCOMYCIN HCL 500 MG in D5W MINI-BAG PLUS 100 ML IV ONE (02:00)
[2023-11-07] MEDS: LR 1,000 ML IV SCH ×2 (02:26→13:00)
[2023-11-07] MEDS: PIPERACILLIN/TAZOBACTAM SOD 3.375 GM in D5W MINI-BAG PLUS 50 ML IV SCH ×4 (05:10→22:29)
[2023-11-07] MEDS: LEVOTHYROXINE 112MCG TABLET (0.112MG) PO SCH (06:00)
[2023-11-07 07:17] LABS: BLOOD UREA NITROGEN 19 MG/DL (9-23); CALCIUM LEVEL 7.4 MG/DL (8.3-10.6); CARBON DIOXIDE LEVEL 23 MMOL/L (20-31); CHLORIDE LEVEL 103 MMOL/L (98-107); CREATININE FOR GFR 0.88 MG/DL (0.70-1.30); GLOMERULAR FILTRATION RATE > 60.0 (>42); GLUCOSE, FASTING 167 MG/DL (74-106); POTASSIUM SERUM 4.1 MMOL/L (3.5-5.1); SODIUM LEVEL 133 MMOL/L (136-145)
[2023-11-07] MEDS: INSULIN LISPRO (NovoLOG) PER UNIT SC SCH ×4 (08:10→20:42)
[2023-11-07 09:16] LABS: BASO % 0.4 % (0.0-1.0); EOS # 0.2 10^3/uL (0.0-0.5); EOS % 1.6 % (0.0-3.0); HEMATOCRIT 34.3 % (42.0-52.0); HEMOGLOBIN 11.5 g/dl (13.5-17.5); LYMPH # 0.9 10^3/uL (1.5-5.0); LYMPH % 9.4 % (24.0-44.0); MEAN CORPUSCULAR HEMOGLOBIN 29.9 pg (27.0-33.0); MEAN CORPUSCULAR HGB CONC 33.5 g/dl (32.0-36.5); MEAN CORPUSCULAR VOLUME 89.3 fl (80.0-96.0); MONO % 11.2 % (2.0-8.0); NEUTROPHILS % 75.6 % (36.0-66.0); PLATELET COUNT, AUTOMATED 212 10^3/uL (150-450); RED BLOOD COUNT 3.84 10^6/uL (4.30-6.10); WHITE BLOOD COUNT 9.2 10^3/uL (4.0-10.0)
[2023-11-07] MEDS: VANCOMYCIN HCL 1,000 MG, VIAL MATE ADAPTER 1 EACH in D5W 250 ML IV SCH ×2 (10:35→20:43)
[2023-11-07] MEDS: HEPARIN SOD (PORCINE) 5000UNITS/ML 1ML VIAL/SYRINGE SC SCH ×2 (11:13→20:43)
[2023-11-07] MEDS: allopurinoL 300 MG TAB PO SCH (12:16)
[2023-11-07] MEDS: PANTOPRAZOLE 40MG TAB (PROTONIX) PO SCH (12:16)
[2023-11-07] MEDS: PRAVASTATIN 20 MG TAB PO SCH (12:16)
[2023-11-07] MEDS: ASPIRIN 81MG ENTERIC TABLET PO SCH (12:16)
[2023-11-07 15:30] VITALS: BP 140/68; TEMP 100; O2SAT 92
[2023-11-07 20:00] VITALS: BP 146/73; TEMP 101; O2SAT 97
[2023-11-07] MEDS: DOXAZOSIN MESYLATE 1 MG TAB PO SCH (20:43)
[2023-11-07] MEDS: ACETAMINOPHEN TAB 650MG DOSE (2X325MG) PO PRN (20:44)
[2023-11-07 23:17] VITALS: BP 133/71; TEMP 97.4; O2SAT 96
[2023-11-08 03:24] VITALS: BP 133/76; TEMP 99.9; O2SAT 94
[2023-11-08] MEDS: LR 1,000 ML IV SCH ×2 (03:25→09:17)
[2023-11-08] MEDS: PIPERACILLIN/TAZOBACTAM SOD 3.375 GM in D5W MINI-BAG PLUS 50 ML IV SCH (04:26)
[2023-11-08] MEDS: LEVOTHYROXINE 112MCG TABLET (0.112MG) PO SCH (06:22)
[2023-11-08 06:23] LABS: BASO % 0.5 % (0.0-1.0); EOS # 0.3 10^3/uL (0.0-0.5); EOS % 3.1 % (0.0-3.0); HEMATOCRIT 36.4 % (42.0-52.0); HEMOGLOBIN 12.3 g/dl (13.5-17.5); LYMPH # 0.8 10^3/uL (1.5-5.0); LYMPH % 9.8 % (24.0-44.0); MEAN CORPUSCULAR HEMOGLOBIN 29.7 pg (27.0-33.0); MEAN CORPUSCULAR HGB CONC 33.8 g/dl (32.0-36.5); MEAN CORPUSCULAR VOLUME 87.9 fl (80.0-96.0); MONO % 11.9 % (2.0-8.0); NEUTROPHILS # 6.1 10^3/uL (1.5-8.5); PLATELET COUNT, AUTOMATED 200 10^3/uL (150-450); RED BLOOD COUNT 4.14 10^6/uL (4.30-6.10); WHITE BLOOD COUNT 8.3 10^3/uL (4.0-10.0)
[2023-11-08 06:47] LABS: BLOOD UREA NITROGEN 14 MG/DL (9-23); CALCIUM LEVEL 7.8 MG/DL (8.3-10.6); CARBON DIOXIDE LEVEL 23 MMOL/L (20-31); CHLORIDE LEVEL 102 MMOL/L (98-107); CREATININE FOR GFR 0.88 MG/DL (0.70-1.30); GLOMERULAR FILTRATION RATE > 60.0 (>42); GLUCOSE, FASTING 170 MG/DL (74-106); POTASSIUM SERUM 4.2 MMOL/L (3.5-5.1); SODIUM LEVEL 133 MMOL/L (136-145)
[2023-11-08] MEDS: INSULIN LISPRO (NovoLOG) PER UNIT SC SCH ×4 (07:30→21:00)
[2023-11-08 08:10] VITALS: BP 125/67; TEMP 98.4; O2SAT 93
[2023-11-08] MEDS: HEPARIN SOD (PORCINE) 5000UNITS/ML 1ML VIAL/SYRINGE SC SCH ×2 (09:42→21:27)
[2023-11-08] MEDS: allopurinoL 300 MG TAB PO SCH (09:42)
[2023-11-08] MEDS: ASPIRIN 81MG ENTERIC TABLET PO SCH (09:42)
[2023-11-08] MEDS: PRAVASTATIN 20 MG TAB PO SCH (09:42)
[2023-11-08] MEDS: PANTOPRAZOLE 40MG TAB (PROTONIX) PO SCH (09:42)
[2023-11-08] MEDS: VANCOMYCIN HCL 750 MG, VIAL MATE ADAPTER 1 EACH in D5W 250 ML IV SCH ×2 (09:43→21:27)
[2023-11-08] MEDS: DOXAZOSIN MESYLATE 1 MG TAB PO SCH ×2 (09:43→21:31)
[2023-11-08] MEDS: VANCOMYCIN HCL 500 MG in D5W MINI-BAG PLUS 100 ML IV SCH ×2 (11:31→22:46)
[2023-11-08 12:00] VITALS: BP 135/90; TEMP 98.8; O2SAT 95
[2023-11-08] MEDS: cefTRIAXone SOD 2 GM in D5W MINI-BAG PLUS 50 ML IV SCH (12:15)
[2023-11-08 16:00] VITALS: BP 139/74; TEMP 98.6; O2SAT 90
[2023-11-08 20:10] VITALS: BP 140/71; TEMP 101; O2SAT 92
[2023-11-08] MEDS: ACETAMINOPHEN TAB 650MG DOSE (2X325MG) PO PRN (21:32)
[2023-11-09] VITALS (7 sets, daily range): BP systolic 113–138; BP diastolic 61–86; TEMP 97.9–100.4; O2SAT 90–97
[2023-11-09] MEDS: LEVOTHYROXINE 112MCG TABLET (0.112MG) PO SCH (05:35)
[2023-11-09] MEDS: INSULIN LISPRO (NovoLOG) PER UNIT SC SCH ×4 (08:09→20:45)
[2023-11-09] MEDS: ASPIRIN 81MG ENTERIC TABLET PO SCH (08:10)
[2023-11-09] MEDS: ACETAMINOPHEN TAB 650MG DOSE (2X325MG) PO PRN (08:10)
[2023-11-09] MEDS: allopurinoL 300 MG TAB PO SCH (08:10)
[2023-11-09] MEDS: DOXAZOSIN MESYLATE 1 MG TAB PO SCH ×2 (08:11→20:44)
[2023-11-09] MEDS: PRAVASTATIN 20 MG TAB PO SCH (08:11)
[2023-11-09] MEDS: PANTOPRAZOLE 40MG TAB (PROTONIX) PO SCH (08:12)
[2023-11-09] MEDS: HEPARIN SOD (PORCINE) 5000UNITS/ML 1ML VIAL/SYRINGE SC SCH ×2 (08:12→20:44)
[2023-11-09 08:18] LABS: HEMATOCRIT 37.4 % (42.0-52.0); HEMOGLOBIN 12.8 g/dl (13.5-17.5); MEAN CORPUSCULAR HEMOGLOBIN 29.6 pg (27.0-33.0); MEAN CORPUSCULAR HGB CONC 34.2 g/dl (32.0-36.5); MEAN CORPUSCULAR VOLUME 86.6 fl (80.0-96.0); PLATELET COUNT, AUTOMATED 207 10^3/uL (150-450); RED BLOOD COUNT 4.32 10^6/uL (4.30-6.10); WHITE BLOOD COUNT 10.4 10^3/uL (4.0-10.0)
[2023-11-09 08:50] LABS: BLOOD UREA NITROGEN 14 MG/DL (9-23); CARBON DIOXIDE LEVEL 25 MMOL/L (20-31); CHLORIDE LEVEL 100 MMOL/L (98-107); GLOMERULAR FILTRATION RATE > 60.0 (>42); GLUCOSE, FASTING 252 MG/DL (74-106); POTASSIUM SERUM 4.4 MMOL/L (3.5-5.1); SODIUM LEVEL 132 MMOL/L (136-145)
[2023-11-09] MEDS: VANCOMYCIN HCL 750 MG, VIAL MATE ADAPTER 1 EACH in D5W 250 ML IV SCH ×4 (09:23→22:46)
[2023-11-09] MEDS ORDERED: PERCOCET 5MG/325MG TAB PO PRN (10:45)
[2023-11-09 11:21] LABS: OSMOLALITY SERUM 280 MOSM/KG (280-301)
[2023-11-09] MEDS: cefTRIAXone SOD 2 GM in D5W MINI-BAG PLUS 50 ML IV SCH (12:34)
[2023-11-09] MEDS: LEVEMIR (INSULIN DETEMIR) 1 UNITS/0.01ML SC SCH (20:45)
[2023-11-10] MEDS: ACETAMINOPHEN TAB 650MG DOSE (2X325MG) PO PRN ×2 (03:28→20:19)
[2023-11-10 04:00] VITALS: BP 137/69; TEMP 99.8; O2SAT 93
[2023-11-10] MEDS: LEVOTHYROXINE 112MCG TABLET (0.112MG) PO SCH (06:18)
[2023-11-10] MEDS ORDERED: BETHANECHOL 10 MG TAB PO ONE (07:55)
[2023-11-10 08:08] VITALS: BP 124/62; TEMP 97.7; O2SAT 91
[2023-11-10 08:35] LABS: BASO # 0.1 10^3/uL (0.0-0.2); BASO % 0.5 % (0.0-1.0); EOS # 0.2 10^3/uL (0.0-0.5); EOS % 1.6 % (0.0-3.0); HEMATOCRIT 38.6 % (42.0-52.0); LYMPH % 9.1 % (24.0-44.0); MEAN CORPUSCULAR HEMOGLOBIN 29.1 pg (27.0-33.0); MEAN CORPUSCULAR HGB CONC 33.7 g/dl (32.0-36.5); MEAN CORPUSCULAR VOLUME 86.4 fl (80.0-96.0); MONO # 1.3 10^3/uL (0.0-0.8); MONO % 11.7 % (2.0-8.0); NEUTROPHILS # 8.6 10^3/uL (1.5-8.5); NEUTROPHILS % 75.3 % (36.0-66.0); PLATELET COUNT, AUTOMATED 220 10^3/uL (150-450); RED BLOOD COUNT 4.47 10^6/uL (4.30-6.10); WHITE BLOOD COUNT 11.4 10^3/uL (4.0-10.0)
[2023-11-10 08:59] LABS: BLOOD UREA NITROGEN 15 MG/DL (9-23); CALCIUM LEVEL 8.3 MG/DL (8.3-10.6); CARBON DIOXIDE LEVEL 28 MMOL/L (20-31); CHLORIDE LEVEL 99 MMOL/L (98-107); CREATININE FOR GFR 0.92 MG/DL (0.70-1.30); GLOMERULAR FILTRATION RATE > 60.0 (>42); GLUCOSE, FASTING 187 MG/DL (74-106); POTASSIUM SERUM 4.5 MMOL/L (3.5-5.1); SODIUM LEVEL 131 MMOL/L (136-145)
[2023-11-10 09:10] LABS: PROCALCITONIN 0.24 ng/ml
[2023-11-10] MEDS: DOXAZOSIN MESYLATE 1 MG TAB PO SCH ×2 (09:27→20:18)
[2023-11-10] MEDS: VANCOMYCIN HCL 750 MG, VIAL MATE ADAPTER 1 EACH in D5W 250 ML IV SCH ×2 (09:27→11:06)
[2023-11-10] MEDS: INSULIN LISPRO (NovoLOG) PER UNIT SC SCH ×4 (09:27→20:19)
[2023-11-10] MEDS: PRAVASTATIN 20 MG TAB PO SCH (09:28)
[2023-11-10] MEDS: ASPIRIN 81MG ENTERIC TABLET PO SCH (09:28)
[2023-11-10] MEDS: allopurinoL 300 MG TAB PO SCH (09:28)
[2023-11-10] MEDS: HEPARIN SOD (PORCINE) 5000UNITS/ML 1ML VIAL/SYRINGE SC SCH ×2 (09:28→20:18)
[2023-11-10] MEDS: PANTOPRAZOLE 40MG TAB (PROTONIX) PO SCH (09:28)
[2023-11-10 12:06] VITALS: BP 123/72; TEMP 97.9; O2SAT 94
[2023-11-10] MEDS: cefTRIAXone SOD 2 GM in D5W MINI-BAG PLUS 50 ML IV SCH (12:53)
[2023-11-10 15:47] VITALS: BP 119/62; TEMP 98.3; O2SAT 93
[2023-11-10 19:26] VITALS: BP 137/76; TEMP 98.5; O2SAT 93
[2023-11-10] MEDS: LEVEMIR (INSULIN DETEMIR) 1 UNITS/0.01ML SC SCH (20:19)
[2023-11-10 23:10] VITALS: BP 127/79; TEMP 98; O2SAT 96
[2023-11-11 03:50] VITALS: BP 134/77; TEMP 97.3; O2SAT 92
[2023-11-11 06:29] LABS: BASO % 0.4 % (0.0-1.0); EOS # 0.2 10^3/uL (0.0-0.5); EOS % 2.1 % (0.0-3.0); HEMATOCRIT 37.8 % (42.0-52.0); HEMOGLOBIN 12.9 g/dl (13.5-17.5); LYMPH % 9.7 % (24.0-44.0); MEAN CORPUSCULAR HEMOGLOBIN 29.7 pg (27.0-33.0); MEAN CORPUSCULAR HGB CONC 34.1 g/dl (32.0-36.5); MEAN CORPUSCULAR VOLUME 86.9 fl (80.0-96.0); MONO # 1.3 10^3/uL (0.0-0.8); MONO % 11.9 % (2.0-8.0); NEUTROPHILS # 7.9 10^3/uL (1.5-8.5); NEUTROPHILS % 73.8 % (36.0-66.0); PLATELET COUNT, AUTOMATED 235 10^3/uL (150-450); RED BLOOD COUNT 4.35 10^6/uL (4.30-6.10); WHITE BLOOD COUNT 10.7 10^3/uL (4.0-10.0)
[2023-11-11] MEDS: LEVOTHYROXINE 112MCG TABLET (0.112MG) PO SCH (06:34)
[2023-11-11 07:02] LABS: BLOOD UREA NITROGEN 17 MG/DL (9-23); CALCIUM LEVEL 7.9 MG/DL (8.3-10.6); CARBON DIOXIDE LEVEL 25 MMOL/L (20-31); CHLORIDE LEVEL 100 MMOL/L (98-107); CREATININE FOR GFR 0.79 MG/DL (0.70-1.30); GLOMERULAR FILTRATION RATE > 60.0 (>42); GLUCOSE, FASTING 192 MG/DL (74-106); POTASSIUM SERUM 4.6 MMOL/L (3.5-5.1); SODIUM LEVEL 132 MMOL/L (136-145)
[2023-11-11 07:14] LABS: PROCALCITONIN 0.19 ng/ml
[2023-11-11 07:50] VITALS: BP 124/67; TEMP 97.7; O2SAT 93
[2023-11-11 07:55] LABS: PSA SCREENING 8.81 NG/ML (< 4.00)
[2023-11-11] MEDS ORDERED: CEFD1CAP9 PO (09:02)
[2023-11-11] MEDS ORDERED: PROBCAP14 PO (09:02)
[2023-11-11] MEDS: INSULIN LISPRO (NovoLOG) PER UNIT SC SCH ×4 (09:08→20:19)
[2023-11-11] MEDS: ASPIRIN 81MG ENTERIC TABLET PO SCH (09:08)
[2023-11-11] MEDS: HEPARIN SOD (PORCINE) 5000UNITS/ML 1ML VIAL/SYRINGE SC SCH (09:09)
[2023-11-11] MEDS: PANTOPRAZOLE 40MG TAB (PROTONIX) PO SCH (09:09)
[2023-11-11] MEDS: cefTRIAXone SOD 2 GM in D5W MINI-BAG PLUS 50 ML IV SCH (09:09)
[2023-11-11] MEDS: allopurinoL 300 MG TAB PO SCH (09:09)
[2023-11-11] MEDS: PRAVASTATIN 20 MG TAB PO SCH (09:09)
[2023-11-11] MEDS: DOXAZOSIN MESYLATE 1 MG TAB PO SCH ×2 (09:09→20:17)
[2023-11-11 09:10] VITALS: BP 122/80
[2023-11-11 11:52] VITALS: BP 127/67; TEMP 97.2; O2SAT 94
[2023-11-11 19:50] VITALS: BP 122/80; TEMP 98.6; O2SAT 94
[2023-11-11] MEDS: LEVEMIR (INSULIN DETEMIR) 1 UNITS/0.01ML SC SCH (20:18)
[2023-11-11] MEDS: ACETAMINOPHEN TAB 650MG DOSE (2X325MG) PO PRN (20:19)
[2023-11-11] MEDS: ENOXAPARIN 40MG/0.4ML SYRINGE (J1650 PER 10MG) SC SCH (20:19)
[2023-11-11 22:28] VITALS: BP 119/66; TEMP 98.4; O2SAT 93
[2023-11-12 05:30] VITALS: BP 137/69; TEMP 98.8; O2SAT 92
[2023-11-12] MEDS: LEVOTHYROXINE 112MCG TABLET (0.112MG) PO SCH (05:51)
[2023-11-12 06:42] LABS: BASO # 0.1 10^3/uL (0.0-0.2); BASO % 0.4 % (0.0-1.0); EOS # 0.3 10^3/uL (0.0-0.5); HEMATOCRIT 37.4 % (42.0-52.0); HEMOGLOBIN 12.6 g/dl (13.5-17.5); LYMPH # 1.2 10^3/uL (1.5-5.0); LYMPH % 10.5 % (24.0-44.0); MEAN CORPUSCULAR HEMOGLOBIN 29.4 pg (27.0-33.0); MEAN CORPUSCULAR HGB CONC 33.7 g/dl (32.0-36.5); MEAN CORPUSCULAR VOLUME 87.4 fl (80.0-96.0); MONO # 1.2 10^3/uL (0.0-0.8); MONO % 10.2 % (2.0-8.0); NEUTROPHILS # 8.3 10^3/uL (1.5-8.5); NEUTROPHILS % 73.3 % (36.0-66.0); PLATELET COUNT, AUTOMATED 271 10^3/uL (150-450); RED BLOOD COUNT 4.28 10^6/uL (4.30-6.10); WHITE BLOOD COUNT 11.4 10^3/uL (4.0-10.0)
[2023-11-12 07:08] LABS: BLOOD UREA NITROGEN 17 MG/DL (9-23); CALCIUM LEVEL 7.9 MG/DL (8.3-10.6); CARBON DIOXIDE LEVEL 26 MMOL/L (20-31); CHLORIDE LEVEL 98 MMOL/L (98-107); CREATININE FOR GFR 0.85 MG/DL (0.70-1.30); GLOMERULAR FILTRATION RATE > 60.0 (>42); GLUCOSE, FASTING 206 MG/DL (74-106); POTASSIUM SERUM 4.5 MMOL/L (3.5-5.1); SODIUM LEVEL 131 MMOL/L (136-145)
[2023-11-12 07:25] LABS: PROCALCITONIN 0.14 ng/ml
[2023-11-12] MEDS: CEFDINIR 300 MG CAP (OMNICEF) PO SCH ×2 (08:11→21:18)
[2023-11-12] MEDS: ASPIRIN 81MG ENTERIC TABLET PO SCH (08:12)
[2023-11-12] MEDS: PANTOPRAZOLE 40MG TAB (PROTONIX) PO SCH (08:12)
[2023-11-12] MEDS: PRAVASTATIN 20 MG TAB PO SCH (08:12)
[2023-11-12] MEDS: INSULIN LISPRO (NovoLOG) PER UNIT SC SCH ×4 (08:12→21:21)
[2023-11-12] MEDS: DOXAZOSIN MESYLATE 1 MG TAB PO SCH ×2 (08:12→21:20)
[2023-11-12] MEDS: allopurinoL 300 MG TAB PO SCH (08:12)
[2023-11-12 14:00] VITALS: BP 132/71; TEMP 97.9; O2SAT 96
[2023-11-12 20:42] VITALS: BP 131/73; TEMP 97.7; O2SAT 94
[2023-11-12] MEDS: ACETAMINOPHEN TAB 650MG DOSE (2X325MG) PO PRN (21:20)
[2023-11-12] MEDS: ENOXAPARIN 40MG/0.4ML SYRINGE (J1650 PER 10MG) SC SCH (21:21)
[2023-11-12] MEDS: LEVEMIR (INSULIN DETEMIR) 1 UNITS/0.01ML SC SCH (21:21)
[2023-11-13 05:12] VITALS: BP 128/74; TEMP 98.7; O2SAT 93
[2023-11-13] MEDS: LEVOTHYROXINE 112MCG TABLET (0.112MG) PO SCH (06:44)
[2023-11-13] MEDS: allopurinoL 300 MG TAB PO SCH (09:07)
[2023-11-13] MEDS: PANTOPRAZOLE 40MG TAB (PROTONIX) PO SCH (09:07)
[2023-11-13] MEDS: CEFDINIR 300 MG CAP (OMNICEF) PO SCH ×2 (09:07→21:04)
[2023-11-13] MEDS: PRAVASTATIN 20 MG TAB PO SCH (09:07)
[2023-11-13] MEDS: ASPIRIN 81MG ENTERIC TABLET PO SCH (09:07)
[2023-11-13] MEDS: INSULIN LISPRO (NovoLOG) PER UNIT SC SCH ×4 (09:07→21:05)
[2023-11-13] MEDS: DOXAZOSIN MESYLATE 1 MG TAB PO SCH ×2 (09:09→21:04)
[2023-11-13 14:00] VITALS: BP 129/77; TEMP 98.1; O2SAT 96
[2023-11-13 20:46] VITALS: BP 129/76; TEMP 98.6; O2SAT 96
[2023-11-13] MEDS: ENOXAPARIN 40MG/0.4ML SYRINGE (J1650 PER 10MG) SC SCH (21:04)
[2023-11-13] MEDS: LEVEMIR (INSULIN DETEMIR) 1 UNITS/0.01ML SC SCH (21:05)
[2023-11-13] MEDS: ACETAMINOPHEN TAB 650MG DOSE (2X325MG) PO PRN (21:07)
[2023-11-14 05:12] VITALS: BP 126/74; TEMP 98.4; O2SAT 93
[2023-11-14] MEDS: LEVOTHYROXINE 112MCG TABLET (0.112MG) PO SCH (05:51)
[2023-11-14 06:35] LABS: HEMATOCRIT 37.3 % (42.0-52.0); HEMOGLOBIN 12.7 g/dl (13.5-17.5); MEAN CORPUSCULAR HEMOGLOBIN 29.7 pg (27.0-33.0); MEAN CORPUSCULAR VOLUME 87.4 fl (80.0-96.0); PLATELET COUNT, AUTOMATED 358 10^3/uL (150-450); RED BLOOD COUNT 4.27 10^6/uL (4.30-6.10)
[2023-11-14] MEDS ORDERED: LR 1,000 ML IV ONE (07:15)
[2023-11-14 08:10] LABS: PROCALCITONIN 0.08 ng/ml
[2023-11-14] MEDS: INSULIN LISPRO (NovoLOG) PER UNIT SC SCH ×3 (08:27→18:03)
[2023-11-14] MEDS: allopurinoL 300 MG TAB PO SCH (08:32)
[2023-11-14] MEDS: CEFDINIR 300 MG CAP (OMNICEF) PO SCH ×2 (08:32→18:38)
[2023-11-14] MEDS: PRAVASTATIN 20 MG TAB PO SCH (08:32)
[2023-11-14 08:33] VITALS: BP 113/65
[2023-11-14] MEDS: PANTOPRAZOLE 40MG TAB (PROTONIX) PO SCH (08:33)
[2023-11-14] MEDS: ASPIRIN 81MG ENTERIC TABLET PO SCH (08:33)
[2023-11-14] MEDS: DOXAZOSIN MESYLATE 1 MG TAB PO SCH (08:33)
[2023-11-14 08:50] LABS: BLOOD UREA NITROGEN 16 MG/DL (9-23); CALCIUM LEVEL 8.6 MG/DL (8.3-10.6); CARBON DIOXIDE LEVEL 25 MMOL/L (20-31); CHLORIDE LEVEL 103 MMOL/L (98-107); CREATININE FOR GFR 0.85 MG/DL (0.70-1.30); GLOMERULAR FILTRATION RATE > 60.0 (>42); GLUCOSE, FASTING 203 MG/DL (74-106); POTASSIUM SERUM 4.5 MMOL/L (3.5-5.1); SODIUM LEVEL 135 MMOL/L (136-145)
[2023-11-14 10:11] LABS: BASO # 0.1 10^3/uL (0.0-0.2); BASO % 0.5 % (0.0-1.0); EOS # 0.3 10^3/uL (0.0-0.5); EOS % 2.5 % (0.0-3.0); HEMATOCRIT 38.6 % (42.0-52.0); HEMOGLOBIN 12.7 g/dl (13.5-17.5); LYMPH # 1.3 10^3/uL (1.5-5.0); MEAN CORPUSCULAR HEMOGLOBIN 28.9 pg (27.0-33.0); MEAN CORPUSCULAR HGB CONC 32.9 g/dl (32.0-36.5); MEAN CORPUSCULAR VOLUME 87.9 fl (80.0-96.0); MONO # 1.1 10^3/uL (0.0-0.8); MONO % 8.3 % (2.0-8.0); NEUTROPHILS # 9.7 10^3/uL (1.5-8.5); NEUTROPHILS % 74.9 % (36.0-66.0); PLATELET COUNT, AUTOMATED 362 10^3/uL (150-450); RED BLOOD COUNT 4.39 10^6/uL (4.30-6.10)
[2023-11-14 14:00] VITALS: BP 135/80; TEMP 98.1; O2SAT 95
== END 2023-11-14 19:22 | disposition home health service (06) | DRG 872 ==
LOC: M ED 18:57 → EDBD 18:57 → M ED INP 11-07 03:24 → ENRESERV 11-07 14:30 → M PCU 11-07 15:14 → M MSPAV 11-11 22:24
PROVIDERS: ADMIT Internal Medicine; ATTEND Internal Medicine
DX: A41.9 Sepsis, unspecified organism (principal); N39.0 Urinary tract infection, site not specified; K56.7 Ileus, unspecified; L03.818 Cellulitis of other sites; B96.20 Unspecified Escherichia coli [E. coli] as the cause of diseases classified elsewhere; Z96.0 Presence of urogenital implants; N40.1 Benign prostatic hyperplasia with lower urinary tract symptoms; N31.9 Neuromuscular dysfunction of bladder, unspecified; N45.1 Epididymitis; E11.9 Type 2 diabetes mellitus without complications; K44.9 Diaphragmatic hernia without obstruction or gangrene; M10.9 Gout, unspecified; R65.20 Severe sepsis without septic shock; M54.9 Dorsalgia, unspecified; E03.9 Hypothyroidism, unspecified; I10 Essential (primary) hypertension; Z86.73 Personal history of transient ischemic attack (TIA), and cerebral infarction without residual deficits; Z90.49 Acquired absence of other specified parts of digestive tract; Z79.890 Hormone replacement therapy; Z79.82 Long term (current) use of aspirin; Z79.899 Other long term (current) drug therapy; Z88.8 Allergy status to other drugs, medicaments and biological substances; Z20.822 Contact with and (suspected) exposure to COVID-19

== ENCOUNTER → 2023-12-21 | Outpatient (CLI) | payer MEDICARE, OTHER ==
[~2023-12-21] MED LIST changes: +ALLO300T2 PO; +ASPI-161 PO; +CEFD1CAP9 PO; +DOXA1TAB42 PO; +GLIP5TAB17 PO; +LISI5TAB11 PO; +PROBCAP14 PO; +TIZA10TA PO
[2023-12-21 17:17] LABS: HEMATOCRIT 38.2 % (42.0-52.0); HEMOGLOBIN 12.5 g/dl (13.5-17.5); MEAN CORPUSCULAR HEMOGLOBIN 29.9 pg (27.0-33.0); MEAN CORPUSCULAR HGB CONC 32.7 g/dl (32.0-36.5); MEAN CORPUSCULAR VOLUME 91.4 fl (80.0-96.0); PLATELET COUNT, AUTOMATED 222 10^3/uL (150-450); RED BLOOD COUNT 4.18 10^6/uL (4.30-6.10); WHITE BLOOD COUNT 6.8 10^3/uL (4.0-10.0)
[2023-12-21 17:30] LABS: ALBUMIN 3.5 G/DL (3.2-5.2); ALKALINE PHOSPHATASE 148 U/L (46-116); ALT/SGPT 13 U/L (7.0-40); AST/SGOT 19 U/L (<34); BILIRUBIN,TOTAL 0.5 MG/DL (0.3-1.2); BLOOD UREA NITROGEN 21 MG/DL (9-23); CALCIUM LEVEL 9.1 MG/DL (8.3-10.6); CARBON DIOXIDE LEVEL 29 MMOL/L (20-31); CHLORIDE LEVEL 106 MMOL/L (98-107); CHOLESTEROL LEVEL 122 MG/DL (<200); CHOLESTEROL RISK RATIO 3.26 (<5); CREATININE FOR GFR 0.95 MG/DL (0.70-1.30); GLOMERULAR FILTRATION RATE > 60.0 (>42); GLUCOSE, FASTING 144 MG/DL (74-106); HDL CHOLESTEROL 37.4 MG/DL (>40); LDL CHOLESTEROL 62.2 MG/DL (<100); NON-HDL-C 84.6 MG/DL; POTASSIUM SERUM 4.3 MMOL/L (3.5-5.1); PROSTATIC SPECIFIC AG MONITOR 3.23 NG/ML (< 4.00); SODIUM LEVEL 136 MMOL/L (136-145); TOTAL PROTEIN 6.7 G/DL (5.7-8.2); TRIGLYCERIDES LEVEL 112 MG/DL (<150)
[2023-12-21 17:31] LABS: THYROID STIMULATING HORMONE 2.423 uIU/ML (0.55-4.78); TOTAL 25(OH) VITAMIN D 29.4 NG/ML (20.0-100.0)
== END ==
LOC: M WUC 14:07
PROVIDERS: ATTEND Family Medicine
DX: I10 Essential (primary) hypertension (principal); D64.9 Anemia, unspecified; R53.83 Other fatigue; Z79.899 Other long term (current) drug therapy; Z12.5 Encounter for screening for malignant neoplasm of prostate

== ENCOUNTER → 2024-01-29 | Outpatient (CLI) | payer MEDICARE, OTHER ==
[~2024-01-29] MED LIST changes: -ASPI-161 PO; +ASPI-615 PO; -OXYB5TAB11 PO; +OXYB5TAB14 PO
== END ==
LOC: M RAD 10:17
PROVIDERS: ATTEND Urology
DX: N45.1 Epididymitis (principal)

== ENCOUNTER → 2024-02-08 | Outpatient (CLI) | payer MEDICARE, OTHER | LOC: M WUC 14:38 | PROVIDERS: ATTEND Family Medicine | DX: J44.9 Chronic obstructive pulmonary disease, unspecified (principal); J98.01 Acute bronchospasm; J84.89 Other specified interstitial pulmonary diseases ==

== ENCOUNTER → 2024-02-24 | Outpatient (CLI) | payer MEDICARE, OTHER | LOC: M RAD 11:19 | PROVIDERS: ATTEND Family Medicine | DX: J18.8 Other pneumonia, unspecified organism (principal) ==

== ENCOUNTER → 2024-03-11 | Outpatient (CLI) | payer MEDICARE, OTHER | LOC: M WUC 14:35 | PROVIDERS: ATTEND Family Medicine | DX: J98.01 Acute bronchospasm (principal) ==

== ENCOUNTER → 2024-03-28 | Outpatient (REF) | payer MEDICARE, OTHER ==
[2024-03-28 19:09] LABS: URIC ACID 3.6 MG/DL (3.7-9.2)
[2024-03-28 19:12] LABS: BLOOD UREA NITROGEN 24 MG/DL (9-23); CALCIUM LEVEL 8.9 MG/DL (8.3-10.6); CARBON DIOXIDE LEVEL 29 MMOL/L (20-31); CHLORIDE LEVEL 103 MMOL/L (98-107); CREATININE FOR GFR 1.02 MG/DL (0.70-1.30); GLOMERULAR FILTRATION RATE > 60.0 (>42); GLUCOSE, FASTING 154 MG/DL (74-106); POTASSIUM SERUM 4.1 MMOL/L (3.5-5.1); SODIUM LEVEL 137 MMOL/L (136-145)
== END ==
LOC: M LABWUC 16:40
PROVIDERS: ATTEND Urology
DX: Z01.812 Encounter for preprocedural laboratory examination (principal)

== ENCOUNTER → 2024-04-10 | Outpatient (CLI) | payer MEDICARE, OTHER ==
[2024-04-10 10:26] LABS: HEMATOCRIT 39.2 % (42.0-52.0); HEMOGLOBIN 13.3 g/dl (13.5-17.5); MEAN CORPUSCULAR HEMOGLOBIN 29.9 pg (27.0-33.0); MEAN CORPUSCULAR HGB CONC 33.9 g/dl (32.0-36.5); MEAN CORPUSCULAR VOLUME 88.1 fl (80.0-96.0); PLATELET COUNT, AUTOMATED 196 10^3/uL (150-450); RED BLOOD COUNT 4.45 10^6/uL (4.30-6.10)
[2024-04-10 10:35] LABS: HEMOGLOBIN A1c 7.2 % (4.0-6.0)
[2024-04-10 10:35] LABS: APPEARANCE, URINE HAZY (CLEAR); BACTERIA, URINE AUTO 2+ (NEGATIVE); BILIRUBIN, URINE AUTO NEGATIVE (NEGATIVE); BLOOD, URINE BLOOD NEGATIVE (NEGATIVE); COLOR, URINE YELLOW (YELLOW); GLUCOSE, URINE (UA) AUTO 1+ mg/dL (NEGATIVE); KETONE, URINE AUTO NEGATIVE (NEGATIVE); LEUKOCYTE ESTERASE, URINE AUTO 2+ (NEGATIVE); NITRITE, URINE AUTO POSITIVE (NEGATIVE); PROTEIN, URINE AUTO NEGATIVE (NEGATIVE); RBC, URINE AUTO 2 /HPF (0-3); SPECIFIC GRAVITY URINE AUTO 1.012 (1.002-1.035); SQUAMOUS EPITHELIAL CELL UR AU 0 /HPF (0-6); UROBILINOGEN, URINE AUTO 0.2 mg/dL (0.0-2.0); WBC, URINE AUTO 27 /HPF (0-3)
[2024-04-10 10:38] LABS: INR 1.12; PROTHROMBIN TIME 14.1 SECONDS (12.5-14.5)
[2024-04-10 10:49] LABS: LIPASE 33 U/L (12-53)
[2024-04-10 10:51] LABS: ALBUMIN 3.6 G/DL (3.2-5.2); ALKALINE PHOSPHATASE 115 U/L (46-116); ALT/SGPT 15 U/L (7.0-40); AST/SGOT 20 U/L (<34); BILIRUBIN,TOTAL 0.6 MG/DL (0.3-1.2); BLOOD UREA NITROGEN 21 MG/DL (9-23); CALCIUM LEVEL 8.9 MG/DL (8.3-10.6); CARBON DIOXIDE LEVEL 25 MMOL/L (20-31); CHLORIDE LEVEL 104 MMOL/L (98-107); CREATININE FOR GFR 0.86 MG/DL (0.70-1.30); GLOMERULAR FILTRATION RATE > 60.0 (>42); GLUCOSE, FASTING 149 MG/DL (74-106); POTASSIUM SERUM 4.4 MMOL/L (3.5-5.1); PROSTATIC SPECIFIC AG MONITOR 2.63 NG/ML (< 4.00); SODIUM LEVEL 136 MMOL/L (136-145); TOTAL PROTEIN 6.4 G/DL (5.7-8.2)
[2024-04-10 10:53] LABS: THYROID STIMULATING HORMONE 5.395 uIU/ML (0.55-4.78)
== END ==
LOC: EEVIPCON 09:18 → M RAD 09:18
PROVIDERS: ATTEND Family Medicine
DX: Z01.818 Encounter for other preprocedural examination (principal); R97.20 Elevated prostate specific antigen [PSA]; Z79.01 Long term (current) use of anticoagulants; E07.9 Disorder of thyroid, unspecified

== ENCOUNTER → 2024-04-30 | Outpatient (CLI) | payer MEDICARE, OTHER | LOC: M WUC 15:29 | PROVIDERS: ATTEND Urology | DX: N28.1 Cyst of kidney, acquired (principal) ==

== ENCOUNTER 2024-09-05 10:33 | Inpatient (IN) | payer MEDICARE, OTHER ==
[~2024-09-05] VITALS: Ht 182.9 cm; Wt 105.7 kg
[2024-09-05] MEDS ORDERED: ISOVUE-370 76% 100ML VIAL As Ordered ONE (10:49)
[2024-09-05 11:20] VITALS: BP 125/58; TEMP 98.8; O2SAT 95
[2024-09-05 11:40] LABS: INR 1.27; PARTIAL THROMBOPLASTIN TIME 32.4 SECONDS (24.8-34.2); PROTHROMBIN TIME 15.5 SECONDS (12.5-14.5)
[2024-09-05 11:48] LABS: BASO % 0.6 % (0.0-1.0); HEMATOCRIT 41.6 % (42.0-52.0); HEMOGLOBIN 13.9 g/dl (13.5-17.5); LYMPH # 0.3 10^3/uL (1.5-5.0); LYMPH % 8.7 % (24.0-44.0); MEAN CORPUSCULAR HEMOGLOBIN 30.6 pg (27.0-33.0); MEAN CORPUSCULAR HGB CONC 33.4 g/dl (32.0-36.5); MEAN CORPUSCULAR VOLUME 91.6 fl (80.0-96.0); MONO # 0.2 10^3/uL (0.0-0.8); NEUTROPHILS # 2.8 10^3/uL (1.5-8.5); NEUTROPHILS % 85.1 % (36.0-66.0); PLATELET COUNT, AUTOMATED 96 10^3/uL (150-450); RED BLOOD COUNT 4.54 10^6/uL (4.30-6.10); WHITE BLOOD COUNT 3.2 10^3/uL (4.0-10.0)
[2024-09-05] MEDS ORDERED: VITA1TAB26 PO (13:07)
[2024-09-05 13:23] LABS: VENOUS BASE EXCESS -0.3 (-2.0-2.0); VENOUS HCO3 25.8 MMOL/L (23.0-27.0); VENOUS O2 SATURATION 52.9 % (60.0-80.0); VENOUS PARTIAL PRESSURE CO2 47.7 mmHg (38.0-50.0); VENOUS PARTIAL PRESSURE O2 29.5 mmHg (30.0-50.0); VENOUS PH 7.351 UNITS (7.330-7.430); VENOUS STANDARD HCO3 23.2 MMOL/L; VENOUS TOTAL CO2 27.3 MMOL/L (24.0-28.0)
[2024-09-05 14:03] LABS: ALBUMIN 3.3 G/DL (3.2-5.2); ALKALINE PHOSPHATASE 110 U/L (46-116); ALT/SGPT 19 U/L (7.0-40); AST/SGOT 29 U/L (<34); BILIRUBIN,DIRECT 0.2 MG/DL (<0.4); BILIRUBIN,TOTAL 0.4 MG/DL (0.3-1.2); BLOOD UREA NITROGEN 22 MG/DL (9-23); CALCIUM LEVEL 8.2 MG/DL (8.3-10.6); CARBON DIOXIDE LEVEL 26 MMOL/L (20-31); CHLORIDE LEVEL 101 MMOL/L (98-107); CREATININE FOR GFR 1.12 MG/DL (0.70-1.30); GLOMERULAR FILTRATION RATE > 60.0 (>42); GLUCOSE, FASTING 201 MG/DL (74-106); MAGNESIUM LEVEL 1.9 MG/DL (1.8-2.4); POTASSIUM SERUM 4.2 MMOL/L (3.5-5.1); SODIUM LEVEL 132 MMOL/L (136-145); TOTAL PROTEIN 6.2 G/DL (5.7-8.2)
[2024-09-05] MEDS ORDERED: HOME MED LIST COMPLETE! XX SCH (14:05)
[2024-09-05 14:10] LABS: OSMOLALITY SERUM 287 MOSM/KG (280-301)
[2024-09-05 14:11] LABS: PROCALCITONIN 0.15 ng/ml
[2024-09-05] MEDS ORDERED: MAALOX 30 ML SUSP *UDC PO PRN (14:15)
[2024-09-05] MEDS: DOXYCYCLINE HYCLATE 100MG TABLET PO SCH (15:21)
[2024-09-05] MEDS: cefTRIAXone SOD 2 GM in D5W MINI-BAG PLUS 50 ML IV SCH (15:21)
[2024-09-05] MEDS: ENOXAPARIN 40MG/0.4ML SYRINGE (J1650 PER 10MG) SC SCH (15:22)
[2024-09-05 16:28] VITALS: BP 134/70; TEMP 100.2; O2SAT 95
[2024-09-05] MEDS ORDERED: GLUCOSE 4 GM CHEW PO PRN (17:15)
[2024-09-05] MEDS ORDERED: GLUCAGON INJ 1MG VIAL SC PRN (17:15)
[2024-09-05] MEDS ORDERED: DEXTROSE 50% 50ML SYRINGE IV PRN (17:15)
[2024-09-05 17:17] VITALS: BP 130/71; TEMP 98; O2SAT 97
[2024-09-05 17:50] VITALS: O2SAT 94
[2024-09-05] MEDS: INSULIN LISPRO (NovoLOG) PER UNIT SC SCH ×2 (18:19→21:00)
[2024-09-05] MEDS: ACETAMINOPHEN 325 MG TAB PO PRN (18:35)
[2024-09-05 20:21] VITALS: TEMP 98.6; O2SAT 93
[2024-09-05] MEDS: DOXAZOSIN MESYLATE 1 MG TAB PO SCH (20:23)
[2024-09-06] VITALS (7 sets, daily range): BP systolic 113–155; BP diastolic 64–94; TEMP 97.9–98.2; O2SAT 92–95
[2024-09-06] MEDS: LEVOTHYROXINE 112MCG TABLET (0.112MG) PO SCH (05:34)
[2024-09-06 05:49] LABS: BASO % 0.5 % (0.0-1.0); EOS % 0.5 % (0.0-3.0); HEMATOCRIT 38.8 % (42.0-52.0); LYMPH # 0.4 10^3/uL (1.5-5.0); LYMPH % 20.4 % (24.0-44.0); MEAN CORPUSCULAR HEMOGLOBIN 29.9 pg (27.0-33.0); MEAN CORPUSCULAR HGB CONC 33.5 g/dl (32.0-36.5); MEAN CORPUSCULAR VOLUME 89.2 fl (80.0-96.0); MONO # 0.3 10^3/uL (0.0-0.8); MONO % 14.8 % (2.0-8.0); NEUTROPHILS # 1.4 10^3/uL (1.5-8.5); NEUTROPHILS % 62.4 % (36.0-66.0); RED BLOOD COUNT 4.35 10^6/uL (4.30-6.10); WHITE BLOOD COUNT 2.2 10^3/uL (4.0-10.0)
[2024-09-06 05:55] LABS: PLATELET COUNT, AUTOMATED 80 10^3/uL (150-450)
[2024-09-06 06:09] LABS: C REACTIVE PROTEIN QUANTITATIV 8.2 MG/DL (<1.0)
[2024-09-06] MEDS ORDERED: MEROPENEM INJ 1 GM in NS 100 ML IV SCH (07:45)
[2024-09-06] MEDS: MEROPENEM INJ 1 GM in IV 1 EA IV SCH (08:23)
[2024-09-06] MEDS: allopurinoL 300 MG TAB PO SCH (08:24)
[2024-09-06] MEDS: PRAVASTATIN 20 MG TAB PO SCH (08:25)
[2024-09-06] MEDS: ASPIRIN 81MG ENTERIC TABLET PO SCH (08:25)
[2024-09-06] MEDS: lisinopriL 5 MG TAB PO SCH (08:26)
[2024-09-06 08:28] LABS: FOLATE 15.38 NG/ML (>5.4)
[2024-09-06] MEDS ORDERED: VARIBAR PUDDING 40% w/v 230ML TUBE As Ordered ONE (10:39)
[2024-09-06] MEDS ORDERED: E-Z-PAQUE 96% w/w SUSP 176GM BTL As Ordered ONE (10:39)
[2024-09-06] MEDS ORDERED: VARIBAR NECTAR 40% w/v 240ML SUSP BTL As Ordered ONE (10:39)
[2024-09-06] MEDS ORDERED: BARIUM SULFATE 700 MG TABLET (E-Z-DISK) As Ordered ONE (10:39)
[2024-09-07] VITALS: BP 122/77; TEMP 97.9; O2SAT 93
[2024-09-07 04:00] VITALS: BP 122/76; TEMP 97.7; O2SAT 96
[2024-09-07 05:23] LABS: T P ELECTROPHORESIS SO 6.3 g/dL (6.1-8.1)
[2024-09-07 07:32] LABS: HEMATOCRIT 37.5 % (42.0-52.0); HEMOGLOBIN 12.7 g/dl (13.5-17.5); MEAN CORPUSCULAR HEMOGLOBIN 29.9 pg (27.0-33.0); MEAN CORPUSCULAR HGB CONC 33.9 g/dl (32.0-36.5); MEAN CORPUSCULAR VOLUME 88.2 fl (80.0-96.0); PLATELET COUNT, AUTOMATED 91 10^3/uL (150-450); RED BLOOD COUNT 4.25 10^6/uL (4.30-6.10); WHITE BLOOD COUNT 2.9 10^3/uL (4.0-10.0)
[2024-09-07 08:00] VITALS: BP 124/74; TEMP 97.7; O2SAT 94
[2024-09-07 08:00] LABS: ATYPICAL LYMPH 8 % (0-5); EOSINOPHILS 1 % (0-3); LYMPHOCYTES 27 % (16-44); METAMYELOCYTES 3 % (0-0); MONOCYTES 21 % (0-5); NEUTROPHILS 40 % (28-66); PLATELET ESTIMATE DECREASED (NORMAL)
[2024-09-07 08:01] LABS: POIKILOCYTOSIS 1+; POLYCHROMASIA 1+
[2024-09-07] MEDS: cefTRIAXone SOD 2 GM in D5W MINI-BAG PLUS 50 ML IV SCH (08:50)
[2024-09-07 09:11] LABS: ALBUMIN 2.8 G/DL (3.2-5.2); ALKALINE PHOSPHATASE 102 U/L (46-116); ALT/SGPT 19 U/L (7.0-40); AST/SGOT 27 U/L (<34); BILIRUBIN,TOTAL 0.3 MG/DL (0.3-1.2); BLOOD UREA NITROGEN 22 MG/DL (9-23); CALCIUM LEVEL 8.5 MG/DL (8.3-10.6); CARBON DIOXIDE LEVEL 23 MMOL/L (20-31); CHLORIDE LEVEL 107 MMOL/L (98-107); CREATININE FOR GFR 0.82 MG/DL (0.70-1.30); GLOMERULAR FILTRATION RATE > 60.0 (>42); GLUCOSE, FASTING 165 MG/DL (74-106); MAGNESIUM LEVEL 1.8 MG/DL (1.8-2.4); SODIUM LEVEL 136 MMOL/L (136-145); TOTAL PROTEIN 5.6 G/DL (5.7-8.2)
[2024-09-07 12:00] VITALS: BP 116/73; TEMP 97.9; O2SAT 92
[2024-09-07 16:00] VITALS: BP 118/72; TEMP 97.7; O2SAT 95
[2024-09-07 20:00] VITALS: BP_SYST 119; BP_SYST 128; BP_DIAS 60; BP_DIAS 70; TEMP 97.3; O2SAT 96
[2024-09-08 04:00] VITALS: BP 112/56; TEMP 97.7; O2SAT 91
[2024-09-08 08:17] LABS: BASO % 0.7 % (0.0-1.0); EOS # 0.2 10^3/uL (0.0-0.5); EOS % 3.9 % (0.0-3.0); HEMATOCRIT 37.5 % (42.0-52.0); HEMOGLOBIN 12.8 g/dl (13.5-17.5); MEAN CORPUSCULAR HEMOGLOBIN 30.2 pg (27.0-33.0); MEAN CORPUSCULAR HGB CONC 34.1 g/dl (32.0-36.5); MEAN CORPUSCULAR VOLUME 88.4 fl (80.0-96.0); MONO # 0.5 10^3/uL (0.0-0.8); MONO % 12.4 % (2.0-8.0); NEUTROPHILS # 1.4 10^3/uL (1.5-8.5); NEUTROPHILS % 34.3 % (36.0-66.0); RED BLOOD COUNT 4.24 10^6/uL (4.30-6.10); WHITE BLOOD COUNT 4.1 10^3/uL (4.0-10.0)
[2024-09-08 08:20] LABS: PLATELET COUNT, AUTOMATED 98 10^3/uL (150-450)
[2024-09-08 08:38] LABS: BLOOD UREA NITROGEN 20 MG/DL (9-23); CALCIUM LEVEL 8.5 MG/DL (8.3-10.6); CARBON DIOXIDE LEVEL 26 MMOL/L (20-31); CHLORIDE LEVEL 106 MMOL/L (98-107); CREATININE FOR GFR 0.81 MG/DL (0.70-1.30); GLOMERULAR FILTRATION RATE > 60.0 (>42); GLUCOSE, FASTING 189 MG/DL (74-106); MAGNESIUM LEVEL 1.9 MG/DL (1.8-2.4); POTASSIUM SERUM 4.2 MMOL/L (3.5-5.1); SODIUM LEVEL 135 MMOL/L (136-145)
[2024-09-08] MEDS ORDERED: BISACODYL 10MG SUPP PR PRN (10:05)
[2024-09-08] MEDS ORDERED: LIDOCAINE 5% (LIDODERM) PATCH TD ONE (10:05)
[2024-09-08] MEDS: LIDOCAINE 5% (LIDODERM) PATCH TD SCH (10:37)
[2024-09-08] MEDS: SENOKOT S TAB PO SCH (10:37)
[2024-09-08 12:00] VITALS: BP 122/70; TEMP 97.5; O2SAT 96
[2024-09-08 20:00] VITALS: BP 121/71; TEMP 97.7; O2SAT 93
[2024-09-08] MEDS: RAMELTEON 8 MG TAB (ROZEREM) PO SCH (21:14)
[2024-09-08 21:37] VITALS: O2SAT 94
[2024-09-09 04:00] VITALS: BP 126/64; TEMP 97; O2SAT 93
[2024-09-09 05:16] LABS: BASO % 0.6 % (0.0-1.0); EOS # 0.1 10^3/uL (0.0-0.5); EOS % 2.6 % (0.0-3.0); HEMATOCRIT 36.7 % (42.0-52.0); HEMOGLOBIN 12.4 g/dl (13.5-17.5); LYMPH # 2.4 10^3/uL (1.5-5.0); LYMPH % 44.9 % (24.0-44.0); MEAN CORPUSCULAR HEMOGLOBIN 29.6 pg (27.0-33.0); MEAN CORPUSCULAR HGB CONC 33.8 g/dl (32.0-36.5); MEAN CORPUSCULAR VOLUME 87.6 fl (80.0-96.0); MONO # 0.5 10^3/uL (0.0-0.8); MONO % 9.7 % (2.0-8.0); NEUTROPHILS # 2.2 10^3/uL (1.5-8.5); NEUTROPHILS % 41.6 % (36.0-66.0); PLATELET COUNT, AUTOMATED 130 10^3/uL (150-450); RED BLOOD COUNT 4.19 10^6/uL (4.30-6.10); WHITE BLOOD COUNT 5.4 10^3/uL (4.0-10.0)
[2024-09-09 05:39] LABS: BLOOD UREA NITROGEN 23 MG/DL (9-23); CALCIUM LEVEL 8.5 MG/DL (8.3-10.6); CARBON DIOXIDE LEVEL 26 MMOL/L (20-31); CHLORIDE LEVEL 104 MMOL/L (98-107); CREATININE FOR GFR 0.87 MG/DL (0.70-1.30); GLOMERULAR FILTRATION RATE > 60.0 (>42); GLUCOSE, FASTING 180 MG/DL (74-106); POTASSIUM SERUM 4.2 MMOL/L (3.5-5.1); SODIUM LEVEL 135 MMOL/L (136-145)
[2024-09-09 12:00] VITALS: BP 120/63; TEMP 97.5; O2SAT 95
[2024-09-09 12:07] LABS: HAPTOGLOBIN 69 mg/dL (43-212)
[2024-09-09 12:07] LABS: PROTEIN CREATININE RATIO 1500 mg/g creat (25-148); UPEP CREATININE 104 mg/dL (20-320); UPEP TOTAL PROTEIN 156 mg/dL (5-25)
[2024-09-09 14:18] LABS: FREE KAPPA LIGHT CHAINS SERUM 31.4 mg/L (3.3-19.4); FREE LAMBDA LIGHT CHAINS SERUM 24.9 mg/L (5.7-26.3); KAPPA/LAMBDA RATIO SERUM 1.26 (0.26-1.65)
[2024-09-09 16:22] LABS: ANA SCREEN, IFA NEGATIVE (NEGATIVE)
[2024-09-09 19:08] LABS: ALBUMIN SPEP 3.7 g/dL (3.8-4.8); ALPHA-1-GLOBULINS SO 0.4 g/dL (0.2-0.3); ALPHA-2-GLOBULINS SO 0.7 g/dL (0.5-0.9); BETA 2 GLOBULIN 0.4 g/dL (0.2-0.5); BETA-GLOBULIN SO 0.4 g/dL (0.4-0.6); GAMMA GLOBULINS SO 0.7 g/dL (0.8-1.7)
[2024-09-09 20:00] VITALS: BP 126/67; TEMP 97.9; O2SAT 94
[2024-09-09 21:08] LABS: UPEP ALBUMIN 54 %; URINE ALPHA 1 GLOBULIN 3 %; URINE ALPHA 2 GLOBULIN 14 %; URINE BETA GLOBULIN 18 %; URINE GAMMA GLOBULIN 11 %
[2024-09-09 21:28] LABS: MYCOPLASMA PNEUMONIAE IGG 1.18 (<=0.90)
[2024-09-09 21:42] LABS: URINE STREP PNEUMONIAE ANTIGEN NOT DETECTED (NOT DETECT)
[2024-09-10 04:00] VITALS: BP 107/61; TEMP 97.7; O2SAT 92
[2024-09-10 06:21] LABS: HEMATOCRIT 35.8 % (42.0-52.0); MEAN CORPUSCULAR HEMOGLOBIN 29.6 pg (27.0-33.0); MEAN CORPUSCULAR HGB CONC 33.5 g/dl (32.0-36.5); MEAN CORPUSCULAR VOLUME 88.4 fl (80.0-96.0); PLATELET COUNT, AUTOMATED 145 10^3/uL (150-450); RED BLOOD COUNT 4.05 10^6/uL (4.30-6.10); WHITE BLOOD COUNT 6.3 10^3/uL (4.0-10.0)
[2024-09-10 06:35] LABS: BLOOD UREA NITROGEN 23 MG/DL (9-23); CALCIUM LEVEL 8.5 MG/DL (8.3-10.6); CARBON DIOXIDE LEVEL 27 MMOL/L (20-31); CHLORIDE LEVEL 105 MMOL/L (98-107); CREATININE FOR GFR 0.87 MG/DL (0.70-1.30); GLOMERULAR FILTRATION RATE > 60.0 (>42); GLUCOSE, FASTING 182 MG/DL (74-106); MAGNESIUM LEVEL 1.9 MG/DL (1.8-2.4); POTASSIUM SERUM 4.2 MMOL/L (3.5-5.1); SODIUM LEVEL 137 MMOL/L (136-145)
[2024-09-10 08:00] VITALS: BP 120/71; TEMP 97.7; O2SAT 96
[2024-09-10 09:11] VITALS: BP 120/71
[2024-09-10] MEDS: ENOXAPARIN 40MG/0.4ML SYRINGE (J1650 PER 10MG) SC SCH (09:54)
[2024-09-10 10:39] LABS: ATYPICAL LYMPH 10 % (0-5); EOSINOPHILS 2 % (0-3); LYMPHOCYTES 28 % (16-44); MONOCYTES 4 % (0-5); NEUTROPHILS 53 % (28-66)
[2024-09-10 10:42] LABS: PLATELET ESTIMATE NORMAL (NORMAL)
[2024-09-10 12:00] VITALS: BP 111/70; TEMP 97; O2SAT 97
[2024-09-10] MEDS ORDERED: DULC10SU2 PR (12:32)
[2024-09-10] MEDS ORDERED: CEFD1CAP9 PO (12:32)
[2024-09-10] MEDS ORDERED: PROBCAP14 PO (12:32)
[2024-09-10] MEDS ORDERED: LIDO5TD TD (12:32)
== END 2024-09-10 14:43 | disposition home health service (06) | DRG 698 ==
LOC: M ED 10:33 → M ED INP 14:13 → M MSPAV 17:02
PROVIDERS: ADMIT Student in an Organized Health Care Education/Training Program; ATTEND Student in an Organized Health Care Education/Training Program
PROC: B246ZZZ Ultrasonography of Right and Left Heart (ICD-10-PCS; principal; 2024-09-06)
DX: T83.518A Infection and inflammatory reaction due to other urinary catheter, initial encounter (principal); G92.9 Unspecified toxic encephalopathy; J18.9 Pneumonia, unspecified organism; J98.11 Atelectasis; D61.818 Other pancytopenia; N39.0 Urinary tract infection, site not specified; M21.371 Foot drop, right foot; I69.398 Other sequelae of cerebral infarction; T42.8X5A Adverse effect of antiparkinsonism drugs and other central muscle-tone depressants, initial encounter; E11.9 Type 2 diabetes mellitus without complications; N31.9 Neuromuscular dysfunction of bladder, unspecified; G89.29 Other chronic pain; B96.20 Unspecified Escherichia coli [E. coli] as the cause of diseases classified elsewhere; M54.9 Dorsalgia, unspecified; I10 Essential (primary) hypertension; R05.3 Chronic cough; Y84.6 Urinary catheterization as the cause of abnormal reaction of the patient, or of later complication, without mention of misadventure at the time of the procedure; D70.9 Neutropenia, unspecified; Z79.82 Long term (current) use of aspirin; Z79.890 Hormone replacement therapy; Z79.84 Long term (current) use of oral hypoglycemic drugs; Z79.899 Other long term (current) drug therapy; Z88.6 Allergy status to analgesic agent; Z88.8 Allergy status to other drugs, medicaments and biological substances

== ENCOUNTER → 2024-09-13 | Outpatient (CLI) | payer MEDICARE, OTHER ==
[~2024-09-13] MED LIST changes: +DULC10SU2 PR; +LIDO5TD TD; +VITA1TAB26 PO
[2024-09-13 12:27] LABS: PROSTATIC SPECIFIC AG MONITOR 3.16 NG/ML (< 4.00)
[2024-09-13 12:33] LABS: BLOOD UREA NITROGEN 23 MG/DL (9-23); CALCIUM LEVEL 8.7 MG/DL (8.3-10.6); CARBON DIOXIDE LEVEL 26 MMOL/L (20-31); CHLORIDE LEVEL 107 MMOL/L (98-107); CREATININE FOR GFR 0.99 MG/DL (0.70-1.30); GLOMERULAR FILTRATION RATE > 60.0 (>42); GLUCOSE, FASTING 196 MG/DL (74-106); POTASSIUM SERUM 4.4 MMOL/L (3.5-5.1); SODIUM LEVEL 138 MMOL/L (136-145)
== END ==
LOC: M WUC 09:36
PROVIDERS: ATTEND Urology
DX: D41.02 Neoplasm of uncertain behavior of left kidney (principal); N31.0 Uninhibited neuropathic bladder, not elsewhere classified; Z79.899 Other long term (current) drug therapy

== ENCOUNTER → 2024-10-31 | Outpatient (CLI) | payer MEDICARE, OTHER ==
[2024-10-31 11:52] LABS: HEMATOCRIT 42.2 % (42.0-52.0); MEAN CORPUSCULAR HEMOGLOBIN 30.2 pg (27.0-33.0); MEAN CORPUSCULAR HGB CONC 33.2 g/dl (32.0-36.5); MEAN CORPUSCULAR VOLUME 90.9 fl (80.0-96.0); PLATELET COUNT, AUTOMATED 185 10^3/uL (150-450); RED BLOOD COUNT 4.64 10^6/uL (4.30-6.10); WHITE BLOOD COUNT 8.7 10^3/uL (4.0-10.0)
[2024-10-31 12:16] LABS: HEMOGLOBIN A1c 8.1 % (4.0-6.0)
[2024-10-31 12:29] LABS: ALBUMIN 3.8 G/DL (3.2-5.2); ALKALINE PHOSPHATASE 127 U/L (40-129); ALT/SGPT 14 U/L (7.0-40); AST/SGOT 15 U/L (<34); BILIRUBIN,TOTAL 0.5 MG/DL (0.3-1.2); BLOOD UREA NITROGEN 25 MG/DL (9-23); CALCIUM LEVEL 9.4 MG/DL (8.3-10.6); CARBON DIOXIDE LEVEL 29 MMOL/L (20-31); CHLORIDE LEVEL 104 MMOL/L (98-107); CHOLESTEROL LEVEL 135 MG/DL (<200); CHOLESTEROL RISK RATIO 3.14 (<5); CREATININE FOR GFR 1.08 MG/DL (0.70-1.30); GLOMERULAR FILTRATION RATE > 60.0 (>42); GLUCOSE, FASTING 190 MG/DL (74-106); HDL CHOLESTEROL 42.9 MG/DL (>40); LDL CHOLESTEROL 80.3 MG/DL (<100); NON-HDL-C 92.1 MG/DL; POTASSIUM SERUM 4.3 MMOL/L (3.5-5.1); SODIUM LEVEL 140 MMOL/L (136-145); TRIGLYCERIDES LEVEL 59 MG/DL (<150)
[2024-10-31 12:31] LABS: TESTOSTERONE 585 NG/DL (241-827)
== END ==
LOC: M WUC 09:12
PROVIDERS: ATTEND Family Medicine
DX: R53.83 Other fatigue (principal); I10 Essential (primary) hypertension; E03.9 Hypothyroidism, unspecified; Z79.899 Other long term (current) drug therapy

== ENCOUNTER → 2025-04-03 | Outpatient (REF) | payer MEDICARE, OTHER | LOC: M LABWUC 17:42 | PROVIDERS: ATTEND Urology | DX: N40.0 Benign prostatic hyperplasia without lower urinary tract symptoms (principal); Z12.4 Encounter for screening for malignant neoplasm of cervix ==

== ENCOUNTER → 2025-06-12 | Outpatient (CLI) | payer MEDICARE, OTHER ==
[~2025-06-12] MED LIST changes: +ALLE12TA31 PO; +GLIP10TA PO; +LIDO1ADH93 TD; -PRAV40TA2 PO; +PRAV40TA85 PO; -PRAV80TA2 PO; +PRAV80TA75 PO
[2025-06-12 13:53] LABS: BASO # 0.0 10^3/uL (0.0-0.2); BASO % 0.5 % (0.0-1.0); EOS # 0.1 10^3/uL (0.0-0.5); EOS % 1.4 % (0.0-3.0); LYMPH # 1.5 10^3/uL (1.5-5.0); LYMPH % 23.6 % (24.0-44.0); MONO # 0.7 10^3/uL (0.0-0.8); MONO % 11.0 % (2.0-8.0); NEUTROPHILS # 4.0 10^3/uL (1.5-8.5); NEUTROPHILS % 62.9 % (36.0-66.0); PLATELET COUNT, AUTOMATED 162 10^3/uL (150-450)
[2025-06-12 14:07] LABS: ESTIMATED AVERAGE GLUCOSE 246.0 MG/DL (60-110); FREE T4 1.51 NG/DL (0.89-1.76)
[2025-06-12 14:09] LABS: CHOLESTEROL LEVEL 121.0 MG/DL (<200); CHOLESTEROL RISK RATIO 2.84 (<5); LDL CHOLESTEROL 64.0 MG/DL (<100); NON-HDL-C 78.4 MG/DL; TRIGLYCERIDES LEVEL 72.0 MG/DL (<150)
[2025-06-12 14:21] LABS: CREATININE, URINE 7.6 MG/DL
[2025-06-12 14:23] LABS: MALB URINE SIEMENS < 3.0 MG/L
== END ==
LOC: M PLALAB 09:24
PROVIDERS: ATTEND Student in an Organized Health Care Education/Training Program
DX: E03.9 Hypothyroidism, unspecified (principal); E11.9 Type 2 diabetes mellitus without complications

== ENCOUNTER → 2025-06-25 | Outpatient (REF) | payer MEDICARE, OTHER | LOC: M LAB REF 17:42 | PROVIDERS: ATTEND Nurse Practitioner Family | DX: R30.0 Dysuria (principal) ==

== ENCOUNTER → 2025-09-09 | Outpatient (CLI) | payer MEDICARE, OTHER | LOC: M WUC 09:52 | PROVIDERS: ATTEND Urology | DX: N40.0 Benign prostatic hyperplasia without lower urinary tract symptoms (principal) ==

== ENCOUNTER → 2025-10-31 | Outpatient (CLI) | payer MEDICARE, OTHER ==
[~2025-10-31] MED LIST changes: -BACTDSTA PO; +SULF-8 PO
[2025-10-31 12:32] LABS: ESTIMATED AVERAGE GLUCOSE 128.0 MG/DL (60-110)
[2025-10-31 12:33] LABS: CALCIUM LEVEL 9.0 MG/DL (8.3-10.6); CARBON DIOXIDE LEVEL 30.0 MMOL/L (20-31); CHLORIDE LEVEL 101.0 MMOL/L (98-107); CHOLESTEROL LEVEL 111.0 MG/DL (<200); CHOLESTEROL RISK RATIO 2.52 (<5); CREATININE FOR GFR 1.02 MG/DL (0.70-1.30); GLOMERULAR FILTRATION RATE 75.2 (>42); LDL CHOLESTEROL 55.4 MG/DL (<100); NON-HDL-C 67.0 MG/DL; POTASSIUM SERUM 4.4 MMOL/L (3.5-5.1); SODIUM LEVEL 137.0 MMOL/L (136-145); TRIGLYCERIDES LEVEL 58.0 MG/DL (<150)
[2025-10-31 12:35] LABS: FREE T4 1.71 NG/DL (0.89-1.76)
[2025-10-31 12:36] LABS: VITAMIN B12 LEVEL 502.0 PG/ML (211-911)
== END ==
LOC: M WUC 10:27
PROVIDERS: ATTEND Student in an Organized Health Care Education/Training Program
DX: Z00.00 Encounter for general adult medical examination without abnormal findings (principal); Z87.39 Personal history of other diseases of the musculoskeletal system and connective tissue; E03.9 Hypothyroidism, unspecified; E11.9 Type 2 diabetes mellitus without complications; R30.0 Dysuria

== ENCOUNTER → 2025-10-31 | Outpatient (REF) | payer MEDICARE, OTHER | LOC: M LAB REF 14:31 | DX: R30.0 Dysuria (principal) ==